=== PATIENT | female | born 1955 | race Caucasian/White ===

== ENCOUNTER 2020-06-08 07:43 | Outpatient (CLI) | payer MEDICARE, SELFPAY ==
--- NOTE | ~2020-06-08 | MM_ITS ---
EXAMINATION: MM screening [facility] BI w michelle HISTORY: Screening mammogram TECHNIQUE: Craniocaudal and mediolateral oblique 3-D tomosynthesis images were obtained and synthetic 2-D images were generated. CAD analysis was submitted and interpreted. COMPARISON: 03/16/2019, 09/02/2017, 08/25/2015 BREAST PARENCHYMAL COMPOSITION: There are scattered areas of fibroglandular density. FINDINGS: There is no evidence of suspicious mass, calcification, or architectural distortion to sugg est malignancy in either breast. There has been no suspicious interval change. IMPRESSION: 1. No mammographic evidence of malignancy. 2. Recommend routine screening mammography in one year. BI-RADS Category 1: Negative Reviewed, dictated and finalized at location A. NEL MANAGER
[2020-06-08] MEDS: ZOLEDRONIC ACID 5 MG/100 ML 100 ML 400 MG IVPB (08:25)
[2020-06-08 08:47] VITALS: BP 120/69; PULSE 80; RESP 16; TEMP 36.3; O2SAT 97
--- NOTE | 2020-06-08 08:49 | PC.NURSE ---
Patient here for yearly Reclast infusion. No concerns voiced. Reports did well with last year's dose. Reclast infusion administrated. Tolerated it well. Safe exit of hospital.
== END 2020-06-08 07:44 | disposition home or self-care (01) ==
PROVIDERS: PCP Internal Medicine; Visit Provider Internal Medicine
DX: M81.0 Age-related osteoporosis without current pathological fracture (principal); Z12.31 Encounter for screening mammogram for malignant neoplasm of breast
CPT/HCPCS: 77063; 77067; 96365; 96374; J3489

== ENCOUNTER 2020-08-14 13:44 | Outpatient (CLI) | payer MEDICARE, SELFPAY ==
[2020-08-15 18:38] LABS: SARS-CoV-2 RNA PCR Positive
== END 2020-08-14 13:45 | disposition home or self-care (01) ==
LOC: CHSLAB 13:46
PROVIDERS: PCP Internal Medicine; Visit Provider Internal Medicine
DX: U07.1 COVID-19 (principal)
CPT/HCPCS: 36415; 86769; C9803; U0003; U0005

== ENCOUNTER 2020-08-16 10:59 | Outpatient (CLI) | payer MEDICARE, SELFPAY ==
--- NOTE | ~2020-08-16 | XR_ITS ---
EXAMINATION: XR chest 2V DATE: 08/16/2020 11:34 INDICATION: COVID-19 pneumonia. TECHNIQUE: Frontal and lateral views of the chest were obtained. COMPARISON: Chest 2 views 02/08/2019 FINDINGS: There is mild atelectasis in left lower lung zone. Calcified bilateral pulmonary nodules an d calcified hilar and mediastinal lymph nodes are consistent with old granulomatous disease. No pleur al effusion or pneumothorax. The heart size is normal. IMPRESSION: 1. Mild atelectasis in left lower lung zone. Reviewed, dictated and finalized at location B. TECHNICIAN
[2020-08-16 11:37] LABS: Basophils Absolute Auto 0.01 K/mm3 (0.00-0.10); Basophils Percent Auto 0.1 % (0.0-1.0); Eosinophils Absolute Auto 0.07 K/mm3 (0.02-0.50); Hematocrit 40.8 % (35.0-42.0); Hemoglobin 13.1 g/dL (11.7-13.8); Immature Granulocyte Absolute 0.02 K/mm3 (0.00-0.00); Immature Granulocyte Percent A 0.3 % (0.0-0.0); Lymphocytes Absolute Auto 1.71 K/mm3 (1.10-4.50); Mean Corpuscular HGB Conc 32.1 g/dL (32.0-36.0); Mean Corpuscular Hemoglobin 30.4 pg (27.0-31.0); Mean Corpuscular Volume 94.7 fL (78.0-102.0); Mean Platelet Volume 9.2 fl (9.2-11.8); Monocytes Absolute Auto 0.41 K/mm3 (0.10-0.90); Monocytes Percent Auto 5.8 % (2.0-11.0); Neutrophils Absolute Auto 4.9 K/mm3 (1.7-7.2); Neutrophils Percent Auto 68.8 % (50.0-70.0); Platelet Count Result 370 K/mm3 (150-420); Red Blood Count 4.31 M/mm3 (4.20-5.40); Red Cell Distribution Width 12.4 % (11.6-14.4); White Blood Count 7.1 K/mm3 (4.8-10.8)
[2020-08-16 11:50] LABS: D Dimer 0.27 mg/L (0.19-0.50)
== END 2020-08-16 11:00 | disposition home or self-care (01) ==
LOC: CHSLAB 11:01
PROVIDERS: PCP Internal Medicine; Visit Provider Internal Medicine
DX: U07.1 COVID-19 (principal); R06.02 Shortness of breath
CPT/HCPCS: 36415; 71046; 85025; 85380

== ENCOUNTER 2020-11-06 10:19 | Emergency (ER) | payer MEDICARE, SELFPAY ==
--- NOTE | ~2020-11-06 | XR_ITS ---
EXAMINATION: XR chest 2V DATE: 11/06/2020 12:54 INDICATION: Anterior chest pain and shortness of breath TECHNIQUE: PA and lateral views of the chest are obtained. COMPARISON: 08/16/2020 FINDINGS: Airspace opacities are present in the right upper lobe. Scattered calcified pulmonary nodul es are consistent with old granulomatous disease. There is no pleural effusion or pneumothorax. The c ardiomediastinal silhouette is normal. There is mild thoracic spondylosis. IMPRESSION: 1. Right upper lobe pneumonia. Reviewed, dictated and finalized at location B.
--- NOTE | ~2020-11-06 | CT_ITS ---
EXAMINATION: CT abdomen pelvis wo con DATE: 11/06/2020 12:50 INDICATION: Epigastric pain, nausea, vomiting, diarrhea TECHNIQUE: Computed tomography (CT) of the abdomen and pelvis was performed without intravenous contr ast. The dose-length product (DLP) was 206.88 mGy-cm. Automated exposure control and iterative recons truction technique were employed. COMPARISON: None FINDINGS: Minimal dependent atelectasis is present in the lung bases. The heart size is normal. Calci fied nodules of the lung bases are consistent with old granulomatous disease. There is a trace perica rdial effusion. Punctate calcifications in otherwise normal appearing liver and spleen likely represe nt healed granulomatous disease. The pancreas, gallbladder, and adrenal glands are normal. The kidney s are unremarkable. No pathologically enlarged abdominal or pelvic lymph nodes are identified. There is no free intraperitoneal gas or evidence of bowel obstruction. Colonic diverticulosis is present wi thout evidence of diverticulitis. There is mild lumbar spondylosis. A small fat-containing umbilical hernia is noted. IMPRESSION: 1. No CT correlate for the patient's symptoms. Reviewed, dictated and finalized at location B.
[2020-11-06 11:49] VITALS: BP 105/53; PULSE 79; RESP 14; O2SAT 95
[2020-11-06 11:54] LABS: Add Urine Microscopic? YES; Appearance Urine Clear (Clear); Bilirubin Urine Negative (Negative); Blood Urine 1+ (Negative); Color Urine Yellow (Yellow); Glucose Urine UA Negative (Negative); Ketones Urine Trace (Negative); Leukocyte Esterase Ur Negative (Negative); Nitrate Urine Negative (Negative); Protein Urine 2+ (Negative); pH Urine 5.5 (5.0-8.0)
[2020-11-06 11:55] LABS: Hematocrit 40.5 % (35.0-42.0); Hemoglobin 13.2 g/dL (11.7-13.8); Mean Corpuscular HGB Conc 32.6 g/dL (32.0-36.0); Mean Corpuscular Hemoglobin 30.4 pg (27.0-31.0); Mean Corpuscular Volume 93.3 fL (78.0-102.0); Mean Platelet Volume 10.3 fl (9.2-11.8); Platelet Count Result 237 K/mm3 (150-420); Red Blood Count 4.34 M/mm3 (4.20-5.40); Red Cell Distribution Width 13.4 % (11.6-14.4); White Blood Count 7.9 K/mm3 (4.8-10.8)
[2020-11-06 12:00] LABS: Amorphous Sediment Urine Moderate; Bacteria Urine 1+ /hpf; Squamous Epithelial Cell Urine Moderate /hpf (Few)
[2020-11-06 12:01] LABS: Mucus Urine Moderate /lpf
[2020-11-06 12:11] LABS: Alanine Aminotransferase 20 U/L (14-59); Albumin Level 2.7 g/dL (3.4-5.0); Alkaline Phosphatase 90 U/L (46-116); Anion Gap 9 mmol/L (8-16); Aspartate Amino Transferase 15 U/L (15-37); Bilirubin,Total 0.5 mg/dL (0.00-1.00); Blood Urea Nitrogen 31 mg/dL (7-18); Carbon Dioxide 27 mmol/L (21-32); Chloride 99 mmol/L (98-108); Estimated Glomerular Filt Rate 35; Glucose 130 mg/dL (70-99); Lipase 35 U/L (73-393); Osmolality Calculated 288 mOsm/kg (285-295); Sodium 135 mmol/L (136-145); Total Protein 7.5 g/dL (6.4-8.2)
[2020-11-06] MEDS: KETOROLAC 30 MG/ML VIAL (*BKC) IV PUSH (12:12)
[2020-11-06] MEDS: ONDANSETRON INJ 4 MG/2 ML VIAL IV PUSH (12:12)
[2020-11-06 12:13] LABS: Lactic Acid Reflex 2.3 mmol/L (0.4-2.0)
[2020-11-06 12:17] LABS: Band Neutrophils Percent 17 % (0-6); Basophils Percent Manual 0 % (0-1); Eosinophils Percent Manual 0 % (1-6); Lymphocytes Percent Manual 14 % (18-44); Metamyelocytes Percent 1 %; Monocytes Absolute Manual 0.39 K/mm3 (0.1-0.90); Monocytes Percent Manual 5 % (3-9); Myelocytes Percent 2 %; Neutrophils Absolute Manual 6.16 K/mm3 (1.7-7.2); Neutrophils Percent Manual 61 % (46-73); Platelet Estimate Adequate (Adequate); Total Cells Counted 100
--- NOTE | 2020-11-06 12:43 | ED.ABDPAIN ---
HPI - Abdominal Pain General Chief Complaint: Abdominal Pain Stated Complaint: fever/ stomach pain/vomiting/ringing in ears/unste Time Seen by Provider: 11/06/20 11:55 Source: patient Mode of arrival: ambulatory Limitations: no limitations History of Present Illness HPI narrative: Patient complains of shortness of breath for the last several days, moderately severe, ongoing, and worse today. She had a fever of 101 on Friday. She has had minimal cough. She has also had epigastric pain she says, which has an aggravation the past few days. Shortness of breath is worse with any activity. Related Data Home Medications Medication Instructions Recorded Confirmed ergocalciferol (vitamin D2) 1,250 mcg PO WEEKLY 06/08/20 11/06/20 [Ergo-D] lovastatin 20 mg PO HS 06/08/20 11/06/20 valacyclovir 500 mg PO DAILY 06/08/20 11/06/20 venlafaxine 37.5 mg PO BID 06/08/20 11/06/20 fluticasone furoate-vilanterol 1 ea INHALATION DAILY 11/06/20 11/06/20 [Breo Ellipta] Allergies Allergy/AdvReac Type Severity Reaction Status Date / Time No Known Allergies Allergy Verified 06/08/20 07:59 Review of Systems Constitutional: Constitutional: Reports fatigue and Reports weakness Eyes: Eyes: Reports no additional eye complaints ENT: Reports system reviewed and no additional complaints, except as documented Cardiovascular: Cardiovascular: Reports no additional cardiovascular complaints Respiratory: Respiratory: Reports no additional respiratory complaints Gastrointestinal: Gastrointestinal: Reports heartburn Comments: Relatively severe discomfort in epigastric area. Genitourinary: Genitourinary: Reports no additional female genitourinary complaints Musculoskeletal: Musculoskeletal: Reports no additional musculoskeletal complaints Integumentary/Breasts: Skin/Breast: Reports system reviewed and no additional complaints, except as docu Neurologic: Reports system reviewed and no additional complaints, except as documented Psychiatric: Psychiatric: Reports no additional psychiatric complaints Endocrine: Endocrine: Reports no additional endocrine complaints Hematologic/Lymphatic: Hematologic/Lymphatic: Reports no additional hematologic/lymphatic complaints Allergic/Immunologic: Allergic/Immunologic: Reports no additional allergic/immunologic complaints PMFSH Past Medical History Medical History Asthma COPD (chronic obstructive pulmonary disease) Histoplasmosis Tuberculin skin test positive Family History Family History Father Family history of alcoholism Mother Family history of congestive heart failure Social History Social History Smoking status: Former smoker Exam Const: General: no acute distress and alert Orientation/consciousness: patient oriented x3 HENMT: Head: normal to inspection Ears: external ears normal General nose exam: Normal external nose present Mouth: Yes Normal oral and palatal mucosa present Throat: posterior oropharynx normal Eyes: Conjunctivae: conjunctivae normal Neck: Neck: normal visual inspection Chest: Chest palpation & inspection: normal inspection of the chest Resp: Effort & Inspection: normal respiratory effort Auscultation: clear to auscultation bilaterally Cardio: Rate: regular rate Rhythm: regular rhythm GI: GI Palp: Yes Soft to palpation (nontender) Skin: General skin exam: normal color Neuro: General: patient oriented x3 and moves all extremities Extrem: General: normal to inspection Psych: Appearance: grossly normal Mental Status: mental status grossly normal Thought content: Yes Normal thought content present Course Course Emergency Course: Labs were reviewed. CXR was reviewed by me, she appears to have a RML pneumonia. Ct of abdomen and pelvis was negative. I believe GERD i
[2020-11-06] MEDS: AZITHROMYCIN 250 MG TABLET 500 MG PO (13:53)
[2020-11-06] MEDS: SODIUM CHLORIDE 0.9% IV 1,000 ML 999 ML IV CONT (13:54)
[2020-11-06 14:42] VITALS: BP 126/65; PULSE 86; RESP 16; O2SAT 96
[2020-11-06 14:57] LABS: Reflex Lactic Acid Yes or No No Lactic Reflex
== END 2020-11-06 14:43 | disposition home or self-care (01) ==
PROVIDERS: Emergency Provider Emergency Medicine; PCP Internal Medicine
DX: J18.9 Pneumonia, unspecified organism (principal); K21.9 Gastro-esophageal reflux disease without esophagitis; J44.9 Chronic obstructive pulmonary disease, unspecified; Z87.891 Personal history of nicotine dependence
CPT/HCPCS: 36415; 71046; 74176; 80053; 81001; 83605; 83690; 85025; 96365; 96375; 99283; 99284; A9270; J0696; J1885; J2405; J7030

== ENCOUNTER 2020-11-10 11:16 | Outpatient (CLI) | payer MEDICARE, SELFPAY ==
--- NOTE | ~2020-11-10 | XR_ITS ---
EXAMINATION: XR chest 2V DATE: 11/10/2020 11:48 INDICATION: Pneumonia. Right chest pain. TECHNIQUE: Frontal and lateral views of the chest were obtained. COMPARISON: Chest 2 views 11/06/2020, 08/16/2020 FINDINGS: Scattered calcified pulmonary nodules are consistent with old granulomatous disease. There is mild atelectasis at the lung bases. There are airspace opacities in right upper lobe with mild rig ht upper lobe volume loss, consistent with pneumonia. No pleural effusion or pneumothorax. The heart size is normal. IMPRESSION: 1. Right upper lobe pneumonia with mild interval improvement. Given the mild right upper lobe volume loss, chest CT with contrast is recommended to exclude obstructing mass. Reviewed, dictated and finalized at location A. IMPRESSION: 1. Right upper lobe pneumonia with mild interval improvement. Given the mild ri ght upper lobe volume loss, chest CT with contrast is recommended to exclude ob structing mass.
--- NOTE | ~2020-11-10 | CT_ITS ---
EXAMINATION: CTA chest PE protocol EXAM DATE: 11/10/2020 13:08 INDICATION: positive d-dimer. Shortness of breath, right CP, elevated ddimer, recent pneumonia. TECHNIQUE: Spiral CTA of the chest (pulmonary arteries) was performed with 100 cc Omnipaque 350 intr avenous contrast injection. Images were acquired during the pulmonary arterial phase. Coronal maxi mum intensity projection 3D-reconstructions were created by the technologist on dedicated workstation . Axial, coronal and sagittal reformatted images were reviewed. The dose-length product (DLP) for t his examination was 209.59 mGy-cm. The exposure was tailored according to patient size (auto mA exp osure control), and iterative reconstruction (ASIR) was used as additional dose reduction technique. Correlation is made to chest x-ray earlier same date and 11/06/2020. FINDINGS: Pulmonary arteries are well opacified and without intraluminal filling defects. No thora cic aortic dissection. Subsegmental dense right upper lobe consolidation with some surrounding groun dglass density, appearance is most consistent with bacterial pneumonia. No evidence of any underlying cancer. There has been evidence of improvement in this opacity correlated to a chest x-ray from 11/06. Smaller amount of right lower lobe groundglass opacity probably same process. Linear left basilar atelectasis. Scattered calcified lung granulomas. Mild emphysema and hyperinflati on. Small right pleural effusion. Small pericardial effusion. Tracheobronchial tree is patent. The re is no mediastinal, hilar or axillary lymphadenopathy. There is no pneumothorax. Heart normal i n size. No evidence of coronary arterial calcification. Upper abdomen is unremarkable. There is mild thoracic spondylosis without osteoblastic or osteolytic lesions identified. IMPRESSION: 1. Segmental right upper lobe consolidation most likely pneumonia, mild interval improvement. 2. Mild emphysema and hyperinflation. 3. No pulmonary emboli. Reviewed, dictated and finalized at location A. IMPRESSION: 1. Segmental right upper lobe consolidation most likely pneumonia, mild interv al improvement. 2. Mild emphysema and hyperinflation. 3. No pulmonary emboli.
[2020-11-10 11:30] LABS: Hematocrit 35.7 % (35.0-42.0); Hemoglobin 11.6 g/dL (11.7-13.8); Mean Corpuscular HGB Conc 32.5 g/dL (32.0-36.0); Mean Corpuscular Hemoglobin 30.3 pg (27.0-31.0); Mean Corpuscular Volume 93.2 fL (78.0-102.0); Mean Platelet Volume 9.3 fl (9.2-11.8); Platelet Count Result 341 K/mm3 (150-420); Red Blood Count 3.83 M/mm3 (4.20-5.40); Red Cell Distribution Width 14.3 % (11.6-14.4); White Blood Count 7.3 K/mm3 (4.8-10.8)
[2020-11-10 11:44] LABS: Alanine Aminotransferase 46 U/L (14-59); Albumin Level 2.5 g/dL (3.4-5.0); Alkaline Phosphatase 106 U/L (46-116); Anion Gap 7 mmol/L (8-16); Aspartate Amino Transferase 22 U/L (15-37); Bilirubin,Total 0.2 mg/dL (0.00-1.00); Blood Urea Nitrogen 13 mg/dL (7-18); Calcium 8.7 mg/dL (8.5-10.1); Carbon Dioxide 29 mmol/L (21-32); Chloride 103 mmol/L (98-108); Estimated Glomerular Filt Rate 59; Glucose 97 mg/dL (70-99); Osmolality Calculated 288 mOsm/kg (285-295); Potassium 3.5 mmol/L (3.5-5.1); Sodium 139 mmol/L (136-145); Total Protein 6.8 g/dL (6.4-8.2)
[2020-11-10 11:52] LABS: BNP 164 pg/mL (0-100)
[2020-11-10 11:59] LABS: Band Neutrophils Percent 2 % (0-6); Basophils Percent Manual 0 % (0-1); Eosinophils Absolute Manual 0.07 K/mm3 (0.02-0.5); Eosinophils Percent Manual 1 % (1-6); Lymphocytes Percent Manual 22 % (18-44); Metamyelocytes Percent 2 %; Monocytes Absolute Manual 0.29 K/mm3 (0.1-0.90); Monocytes Percent Manual 4 % (3-9); Myelocytes Percent 2 %; Neutrophils Absolute Manual 5.03 K/mm3 (1.7-7.2); Neutrophils Percent Manual 67 % (46-73); Platelet Estimate Adequate (Adequate); Total Cells Counted 100
== END 2020-11-10 11:17 | disposition home or self-care (01) ==
PROVIDERS: PCP Internal Medicine; Visit Provider Internal Medicine
DX: R79.1 Abnormal coagulation profile (principal); R06.02 Shortness of breath; R06.00 Dyspnea, unspecified; J18.9 Pneumonia, unspecified organism
CPT/HCPCS: 36415; 71046; 71275; 80053; 83880; 85025; 85380; Q9967

== ENCOUNTER 2020-11-17 08:19 | Outpatient (CLI) | payer MEDICARE, SELFPAY ==
--- NOTE | ~2020-11-17 | XR_ITS ---
XR chest 2V DATE: 11/17/2020 08:51 INDICATION: Pneumonia. Covid. COPD. Asthma. TECHNIQUE: 2 views COMPARISON: 11/10/2020 CT pulmonary scan 11/10/2020 2 view chest FINDINGS: There is interval mild improvement of right upper lobe infiltrate, with persistent mild rig ht upper lobe atelectasis. Stable mild discoid atelectasis or scarring at the left lung base. Old pulmonary granulomatous disease. Normal heart size. No hilar or mediastinal enlargement is evident. IMPRESSION: Mild interval improvement of right upper lobe infiltrate since 11/10/2020 Reviewed, dictated and finalized at location A.
== END 2020-11-17 08:20 | disposition home or self-care (01) ==
LOC: CHSIMG 08:21
PROVIDERS: PCP Internal Medicine; Visit Provider Internal Medicine
DX: J18.9 Pneumonia, unspecified organism (principal)
CPT/HCPCS: 71046

== ENCOUNTER 2020-12-01 10:21 | Outpatient (CLI) | payer MEDICARE, SELFPAY ==
--- NOTE | ~2020-12-01 | XR_ITS ---
EXAMINATION: XR chest 2V DATE: 12/01/2020 10:43 INDICATION: Post-COVID pneumonia with ongoing cough TECHNIQUE: PA and lateral views of the chest were obtained. COMPARISON: Chest radiograph dated 11/17/2020 and 11/10/2020 FINDINGS: Continued improvement in a focal airspace opacity in the right upper lobe with suggestion of some ass ociated volume loss with mild elevation of the right hemidiaphragm. Additional mild opacities at the anterior left lung base. Multiple scattered bilateral small calcified pulmonary nodules along with ca lcified hilar and the sentinel lymph nodes consistent with old granulomatous disease. No pulmonary ed radha, pleural effusion or pneumothorax. The cardiomediastinal silhouette is normal. Mild thoracic levo curvature with moderate spondylosis. IMPRESSION: 1. Airspace opacities, unchanged at the anterior left lung base and with continued improvement in the right upper lung zone. Differential would include atelectasis and/or pneumonia. Reviewed, dictated and finalized at location A. IMPRESSION: 1. Airspace opacities, unchanged at the anterior left lung base and with contin ued improvement in the right upper lung zone. Differential would include atelec tasis and/or pneumonia.
== END 2020-12-01 10:22 | disposition home or self-care (01) ==
LOC: CHSLAB 10:23
PROVIDERS: PCP Internal Medicine; Visit Provider Internal Medicine
DX: J18.9 Pneumonia, unspecified organism (principal); Z51.89 Encounter for other specified aftercare
CPT/HCPCS: 71046

== ENCOUNTER 2020-12-04 13:10 | Outpatient (CLI) | payer MEDICARE, SELFPAY ==
--- NOTE | ~2020-12-04 | CT_ITS ---
EXAMINATION:CT diagnostic chest wo con DATE: 12/04/2020 13:34 INDICATION: Shortness of breath and cough. Pneumonia. TECHNIQUE: Computed tomography (CT) of the chest was performed without intravenous contrast. Automate d exposure control and iterative reconstruction technique were employed. The dose-length product (DLP ) was 119.56 mGy-cm. COMPARISON: Chest CT 11/10/2020, chest 2 views 12/01/2020, 11/17/2020, 11/10/2020, 11/06/2020 FINDINGS: Scattered calcified pulmonary nodules and calcified hilar and mediastinal lymph nodes are c onsistent with old granulomatous disease. In the right upper lobe, there are airspace opacities with volume loss and varicose bronchiectasis. There is mild bronchiectasis in left lower lobe and lingula. There is mild scarring at the lung apices. No pleural effusion. The heart size is normal. No pericar dial effusion. Calcifications in the liver and spleen are consistent with old granulomatous disease. There is severe thoracic spondylosis. IMPRESSION: 1. Right lung upper lobe airspace opacities with volume loss and varicose bronchiectasis with interva l improvement, consistent with pneumonia and scarring. Reviewed, dictated and finalized at location B. IMPRESSION: 1. Right lung upper lobe airspace opacities with volume loss and varicose bronc hiectasis with interval improvement, consistent with pneumonia and scarring.
== END 2020-12-04 13:11 | disposition home or self-care (01) ==
LOC: CHSIMG 13:11
PROVIDERS: PCP Internal Medicine; Visit Provider Internal Medicine
DX: J18.9 Pneumonia, unspecified organism (principal)
CPT/HCPCS: 71250

== ENCOUNTER 2021-07-13 14:15 | Outpatient (CLI) | payer MEDICARE, SELFPAY ==
--- NOTE | ~2021-07-13 | DEXA_ITS ---
Bone Density Report Name: SOLE MONTALVO Age: 66 Sex: Female Ethnicity: White Date of : 1955 Indication: postmenopausal; screening for osteoporosis; height loss; prior fracture; asthma or emphysema; Referring Provider: Starr Jacinto Study: Bone densitometry was performed. Exam Date: July 13, 2021 Accession number: [id number] Bone Density: Region BMD T-score Z-score Classification AP Spine(L1-L4) 1.089 0.4 2.4 Normal Femoral Neck (Left) 0.700 -1.3 0.3 Osteopenia Total Hip (Left) 0.862 -0.7 0.7 Normal Femoral Neck (Right) 0.683 -1.5 0.2 Osteopenia Total Hip (Right) 0.859 -0.7 0.7 Normal Femoral Neck Mean 0.691 -1.4 0.3 Osteopenia Total Hip Mean 0.861 -0.7 0.7 Normal World Health Organization criteria for BMD impression classify patients as: Normal (T-score at or above -1.0), Osteopenia (T-score between -1.0 and -2.5), or Osteoporosis (T-score at or below -2.5). 10-year Fracture Risk: FRAX not reported because: Treated for osteoporosis Clinical Information Provided by Patient: Has had a low trauma fracture Has 3 or more alcoholic drinks per day Is being treated for osteoporosis Has used the following medications: Vitamin D, Calcium, infusion for osteoporis Has the following medical conditions: Asthma or Emphysema Patient maximum height was 61 Menopause Age: 48 Drinks caffeinated beverages Onset of menses at age 10 Number of children 2 Impression: The patient has low bone mass, based on the Right Femoral Neck T-score. The patient has risk factors, including: excessive alcohol use, previous fracture. Discussion: It is important to ask patients whether they are taking their medications and to encourage continued and appropriate compliance with their osteoporosis therapies to reduce fracture risk. It is also important to review their risk factors and encourage appropriate calcium and vitamin D intakes, exercise, fall prevention and other lifestyle measures. Follow-Up: Consider a repeat BMD and Vertebral Fracture Assessment (VFA) exam in 2 years or sooner if medically necessary, to reassess this patient's status. Reported by: Dr. Zachery Montero on 07/13/2021 2:57:00 PM. Reviewed, dictated and finalized at location ACherise COLES
--- NOTE | ~2021-07-13 | MM_ITS ---
EXAMINATION: MM screening [facility] BI w michelle HISTORY: Screening TECHNIQUE: Craniocaudal and mediolateral oblique 3-D tomosynthesis images were obtained and synthetic 2-D images were generated. CAD analysis was submitted and interpreted. COMPARISON: Comparison to multiple prior studies sequentially, with oldest reviewed study dated 03/2013. BREAST PARENCHYMAL COMPOSITION: Breast composed of scattered areas of fibroglandular density. FINDINGS: There is no evidence of suspicious mass, calcification, or architectural distortion to sugg est malignancy in either breast. There has been no suspicious interval change. IMPRESSION: 1. No mammographic evidence of malignancy. 2. Recommend routine screening mammography in one year. BI-RADS Category 1: Negative Reviewed, dictated and finalized at location A. RATION PLANT OPERATOR
== END 2021-07-13 14:16 | disposition home or self-care (01) ==
LOC: CHSIMG 14:17
PROVIDERS: PCP Internal Medicine; Visit Provider Internal Medicine
DX: M81.0 Age-related osteoporosis without current pathological fracture (principal); Z12.31 Encounter for screening mammogram for malignant neoplasm of breast
CPT/HCPCS: 77063; 77067; 77080

== ENCOUNTER 2021-08-03 17:15 | Outpatient (CLI) | payer MEDICARE, SELFPAY ==
[2021-08-03 19:32] LABS: SARS-CoV-2 Ag Negative (Negative)
[2021-08-03 19:32] LABS: Influenza Control Valid (Valid)
== END 2021-08-03 17:16 | disposition home or self-care (01) ==
LOC: CHSLAB 17:18
PROVIDERS: PCP Internal Medicine; Visit Provider Internal Medicine
DX: J06.9 Acute upper respiratory infection, unspecified (principal); Z20.822 Contact with and (suspected) exposure to COVID-19
CPT/HCPCS: 87081; 87426; 87804; 87880; C9803

== ENCOUNTER 2021-10-01 12:09 | Outpatient (CLI) | payer MEDICARE, SELFPAY ==
--- NOTE | ~2021-10-01 | XR_ITS ---
EXAMINATION: XR chest 2V EXAM DATE: 10/01/2021 13:54 INDICATION: Asthma Exacerbation, pneumonia, COPD, cough x8days. TECHNIQUE: Frontal and lateral projections of the chest obtained and reviewed. Comparison is made to prior examination from 12/11/2020. FINDINGS: Left basilar linear opacity, at least partly atelectasis. Superimposed pneumonia not exclu dable. There are scattered lung granulomata bilaterally unchanged. Resolution of previously seen righ t upper lobe pneumonia. No pneumothorax or pleural effusion. Cardiomediastinal silhouette is normal. Degenerative IMPRESSION: 1. Development of scattered left basilar atelectasis. Superimposed pneumonia not excludable. 2. Lung granulomas. Reviewed, dictated and finalized at location A. T TEAM CLERK IMPRESSION: 1. Development of scattered left basilar atelectasis. Superimposed pneumonia n ot excludable. 2. Lung granulomas.
[2021-10-01 12:29] LABS: Basophils Absolute Auto 0.02 K/mm3 (0.00-0.10); Basophils Percent Auto 0.4 % (0.0-1.0); Eosinophils Absolute Auto 0.04 K/mm3 (0.02-0.50); Eosinophils Percent Auto 0.7 % (1.0-6.0); Hematocrit 41.5 % (35.0-42.0); Hemoglobin 13.2 g/dL (11.7-13.8); Immature Granulocyte Absolute 0.02 K/mm3 (0.00-0.00); Immature Granulocyte Percent A 0.4 % (0.0-0.0); Lymphocytes Absolute Auto 1.25 K/mm3 (1.10-4.50); Lymphocytes Percent Auto 22.4 % (18.0-42.0); Mean Corpuscular HGB Conc 31.8 g/dL (32.0-36.0); Mean Corpuscular Hemoglobin 30.5 pg (27.0-31.0); Mean Corpuscular Volume 95.8 fL (78.0-102.0); Mean Platelet Volume 9.8 fl (9.2-11.8); Monocytes Absolute Auto 0.43 K/mm3 (0.10-0.90); Monocytes Percent Auto 7.7 % (2.0-11.0); Neutrophils Absolute Auto 3.8 K/mm3 (1.7-7.2); Neutrophils Percent Auto 68.4 % (50.0-70.0); Platelet Count Result 284 K/mm3 (150-420); Red Blood Count 4.33 M/mm3 (4.20-5.40); Red Cell Distribution Width 13.2 % (11.6-14.4); White Blood Count 5.6 K/mm3 (4.8-10.8)
[2021-10-01 12:40] LABS: Influenza Control Valid (Valid)
[2021-10-01 12:47] LABS: Alanine Aminotransferase 26 U/L (14-59); Albumin Level 3.1 g/dL (3.4-5.0); Alkaline Phosphatase 81 U/L (46-116); Anion Gap 10 mmol/L (8-16); Aspartate Amino Transferase 20 U/L (15-37); Bilirubin,Total 0.4 mg/dL (0.00-1.00); Blood Urea Nitrogen 16 mg/dL (7-18); Calcium 8.7 mg/dL (8.5-10.1); Carbon Dioxide 29 mmol/L (21-32); Chloride 103 mmol/L (98-108); Estimated Glomerular Filt Rate 53; Glucose 72 mg/dL (70-99); Osmolality Calculated 294 mOsm/kg (285-295); Potassium 4.3 mmol/L (3.5-5.1); Sodium 142 mmol/L (136-145); Total Protein 7.2 g/dL (6.4-8.2)
== END 2021-10-01 12:10 | disposition home or self-care (01) ==
PROVIDERS: PCP Internal Medicine; Visit Provider Internal Medicine
DX: J45.901 Unspecified asthma with (acute) exacerbation (principal)
CPT/HCPCS: 71046; 80053; 85025; 87804

== ENCOUNTER 2021-10-08 08:54 | Outpatient (CLI) | payer MEDICARE, SELFPAY ==
--- NOTE | ~2021-10-08 | XR_ITS ---
EXAMINATION: XR chest 2V DATE: 10/08/2021 09:10 INDICATION: Left lower lobe pneumonia with cough and shortness of breath TECHNIQUE: PA and lateral views of the chest were obtained. COMPARISON: Chest radiograph dated 10/01/2021 FINDINGS: Improvement in opacities at the left lung base which could represent atelectasis and/or pneumonia. Pe rsistent more linear and bandlike opacities at the right lower lung zone and favor atelectasis over p neumonia. Numerous bilateral small calcified pulmonary nodules and calcified bilateral hilar and medi astinal lymph nodes consistent with old granulomatous disease. The cardiomediastinal silhouette is no rmal. Mild to moderate degenerative skeletal changes in the thoracic and lumbar spine and at both gle nohumeral joints. IMPRESSION: 1. Decreasing opacities at the left lower lung zone which could represent improving atelectasis and/o r pneumonia. 2. Unchanged linear and bandlike opacities more likely to represent atelectasis at the right lung bas e. Reviewed, dictated and finalized at location A. IMPRESSION: 1. Decreasing opacities at the left lower lung zone which could represent impro ving atelectasis and/or pneumonia. 2. Unchanged linear and bandlike opacities more likely to represent atelectasis at the right lung base.
== END 2021-10-08 08:55 | disposition home or self-care (01) ==
LOC: CHSIMG 08:57
PROVIDERS: PCP Internal Medicine; Visit Provider Internal Medicine
DX: Z09 Encounter for follow-up examination after completed treatment for conditions other than malignant neoplasm (principal); J18.9 Pneumonia, unspecified organism
CPT/HCPCS: 71046

== ENCOUNTER 2021-11-13 08:41 | Outpatient (CLI) | payer MEDICARE, SELFPAY ==
--- NOTE | ~2021-11-13 | XR_ITS ---
EXAMINATION: XR chest 2V DATE: 11/13/2021 09:17 INDICATION: Pneumonia follow-up. TECHNIQUE: Frontal and lateral views of the chest were obtained. COMPARISON: Chest 2 views 10/08/2021 FINDINGS: Calcified pulmonary nodules and calcified hilar and mediastinal lymph nodes are consistent with old granulomatous disease. There is mild atelectasis in left lower lung zone with interval impro vement. No pleural effusion or pneumothorax. The heart size is normal. IMPRESSION: 1. Mild atelectasis in left lower lung zone. Reviewed, dictated and finalized at location B.
[2021-11-13 09:07] LABS: Add Urine Microscopic? NO; Appearance Urine Clear (Clear); Bilirubin Urine Negative (Negative); Blood Urine Negative (Negative); Color Urine Light Yellow (Yellow); Glucose Urine UA Negative (Negative); Ketones Urine Negative (Negative); Leukocyte Esterase Ur Negative (Negative); Nitrate Urine Negative (Negative); Protein Urine Negative (Negative); Specific Grav Ur <= 1.005 (1.010-1.020); Urobilinogen Urine 0.2 mg/dL (0.2-1.0); pH Urine 6.5 (5.0-8.0)
[2021-11-13 09:43] LABS: Alanine Aminotransferase 19 U/L (14-59); Albumin Level 4.1 g/dL (3.4-5.0); Alkaline Phosphatase 54 U/L (46-116); Anion Gap 6 mmol/L (8-16); Aspartate Amino Transferase 17 U/L (15-37); Bilirubin,Total 0.5 mg/dL (0.00-1.00); Blood Urea Nitrogen 14 mg/dL (7-18); Calcium 9.1 mg/dL (8.5-10.1); Carbon Dioxide 30 mmol/L (21-32); Chloride 104 mmol/L (98-108); Cholesterol 282 mg/dL (0-200); Creatine Kinase 106 U/L (26-192); Estimated Glomerular Filt Rate > 60; Glucose 91 mg/dL (70-99); HDL Direct 92 mg/dL (40-60); LDL Cholesterol Calculated 172 mg/dL (<130); Osmolality Calculated 290 mOsm/kg (285-295); Potassium 4.7 mmol/L (3.5-5.1); Sodium 140 mmol/L (136-145); Total Protein 7.1 g/dL (6.4-8.2); Triglycerides 89 mg/dL (0-150)
[2021-11-15 15:01] LABS: Vitamin D 25 Hydroxy 62 ng/mL (30-100)
== END 2021-11-13 08:42 | disposition home or self-care (01) ==
LOC: CHSLAB 08:44
PROVIDERS: PCP Internal Medicine; Visit Provider Internal Medicine
DX: E78.2 Mixed hyperlipidemia (principal); M81.0 Age-related osteoporosis without current pathological fracture; J18.9 Pneumonia, unspecified organism; Z09 Encounter for follow-up examination after completed treatment for conditions other than malignant neoplasm
CPT/HCPCS: 36415; 71046; 80053; 80061; 81003; 82306; 82550

== ENCOUNTER 2021-12-25 10:36 | Outpatient (CLI) | payer MEDICARE, SELFPAY ==
--- NOTE | ~2021-12-25 | XR_ITS ---
XR chest 2V 12/25/2021 10:57 Indication: Pneumonia. History of asthma. COPD. Procedure: 2 view chest Comparison: Comparison to multiple prior studies sequentially, with oldest reviewed study dated 01/2021. Findings: There is chronic left basilar atelectasis/scarring. There are multiple bilateral calcified pulmonary nodules unchanged. Heart size normal. No focal air space disease, pulmonary edema, pleural effusion or suspected pneumothorax. Impression: 1: No acute cardiopulmonary disease. Reviewed, dictated and finalized at location A. Impression: 1: No acute cardiopulmonary disease.
[2021-12-25] MEDS: ZOLEDRONIC ACID 5 MG/100 ML 100 ML 400 MG IVPB (11:00)
[2021-12-25 11:04] VITALS: BMI 24.9
[2021-12-25 11:06] VITALS: BP 128/71; PULSE 72; RESP 14; TEMP 36.6; O2SAT 97
--- NOTE | 2021-12-25 11:07 | PC.NURSE ---
Patient here for yearly IV Reclast. Reports has it the last 2 years. No concerns voiced. Education given. IV Reclast administered see SEP. Tolerated well safe exit of hospital.
== END 2021-12-25 10:37 | disposition home or self-care (01) ==
LOC: CHSIMG 10:41
PROVIDERS: PCP Internal Medicine; Visit Provider Internal Medicine
DX: J18.9 Pneumonia, unspecified organism (principal); M81.0 Age-related osteoporosis without current pathological fracture
CPT/HCPCS: 71046; 96374; J3489

== ENCOUNTER 2022-12-30 09:11 | Outpatient (CLI) | payer MEDICARE, SELFPAY ==
[2022-12-30 09:16] VITALS: BMI 24.9
[2022-12-30] MEDS: ZOLEDRONIC ACID 5 MG/100 ML 100 ML 400 MG IVPB (09:20)
[2022-12-30 09:24] VITALS: BP 141/58; PULSE 72; RESP 14; TEMP 36.4; O2SAT 98
--- NOTE | 2022-12-30 09:34 | PC.NURSE ---
Patient here for yearly IV Reclast. Education given. No concerns voiced. Reports hasn't had trouble with this. Has been getting it for years. IV Reclast administered. See MAR. Tolerated well. Safe exit of hospital. Will return next year when notified.
== END 2022-12-30 09:12 | disposition home or self-care (01) ==
LOC: CHSTREATRM 09:13
PROVIDERS: PCP Internal Medicine; Visit Provider Internal Medicine
DX: M81.0 Age-related osteoporosis without current pathological fracture (principal)
CPT/HCPCS: 96374; J3489

== ENCOUNTER 2023-07-22 12:44 | Outpatient (CLI) | payer MEDICARE, SELFPAY ==
--- NOTE | ~2023-07-22 | MM_ITS ---
EXAMINATION: MM screening [facility] BI w michelle HISTORY: Screening mammogram TECHNIQUE: Craniocaudal and mediolateral oblique 3-D tomosynthesis images were obtained and synthetic 2-D images were generated. CAD analysis was submitted and interpreted. COMPARISON: 07/13/2021, 06/08/2020, 03/16/2019 bilateral screening mammogram examinations BREAST PARENCHYMAL COMPOSITION: There are scattered areas of fibroglandular density. FINDINGS: There is no evidence of suspicious mass, calcification, or architectural distortion to sugg est malignancy in either breast. There has been no suspicious interval change. IMPRESSION: 1. No mammographic evidence of malignancy. 2. Recommend routine screening mammography in one year. BI-RADS Category 1: Negative Reviewed, dictated and finalized at location A. STRIAL ENGINEERING ANALYST
--- NOTE | ~2023-07-22 | DEXA_ITS ---
Bone Density Report Name: SOLE MONTALVO Age: 68 Sex: Female Ethnicity: White Date of : 1955 Indication: postmenopausal; screening for osteoporosis; height loss; prior fracture; asthma or emphysema; Referring Provider: Starr Jacinto Study: Bone densitometry was performed. Exam Date: July 22, 2023 Accession number: [id number] Bone Density: Region BMD T-score Z-score Classification AP Spine(L2, L3, L4) 1.137 0.5 2.7 Normal Femoral Neck (Left) 0.659 -1.7 0.1 Osteopenia Total Hip (Left) 0.866 -0.6 0.9 Normal Femoral Neck (Right) 0.668 -1.6 0.2 Osteopenia Total Hip (Right) 0.865 -0.6 0.9 Normal Femoral Neck Mean 0.664 -1.7 0.1 Osteopenia Total Hip Mean 0.866 -0.6 0.9 Normal World Health Organization criteria for BMD impression classify patients as: Normal (T-score at or above -1.0), Osteopenia (T-score between -1.0 and -2.5), or Osteoporosis (T-score at or below -2.5). 10-year Fracture Risk: FRAX not reported because: Treated for osteoporosis Clinical Information Provided by Patient: Has had a low trauma fracture Has 3 or more alcoholic drinks per day Is being treated for osteoporosis Has used the following medications: Vitamin D, Calcium, infusion for osteoporis Has the following medical conditions: Asthma or Emphysema Patient maximum height was 61 Menopause Age: 48 Drinks caffeinated beverages Onset of menses at age 10 Number of children 2 Impression: The patient has low bone mass, based on the Left Femoral Neck T-score. The patient has risk factors, including: excessive alcohol use, previous fracture. Discussion: It is important to ask patients whether they are taking their medications and to encourage continued and appropriate compliance with their osteoporosis therapies to reduce fracture risk. It is also important to review their risk factors and encourage appropriate calcium and vitamin D intakes, exercise, fall prevention and other lifestyle measures. Follow-Up: Consider a repeat BMD and Vertebral Fracture Assessment (VFA) exam in 2 years or sooner if medically necessary, to reassess this patient's status. Reported by: Dr. Vladimir Silvestre on 07/22/2023 1:17:00 PM. Reviewed, dictated and finalized at location A.
== END 2023-07-22 12:45 | disposition home or self-care (01) ==
LOC: CHSIMG 12:46
PROVIDERS: PCP Internal Medicine; Visit Provider Internal Medicine
DX: Z12.31 Encounter for screening mammogram for malignant neoplasm of breast (principal); Z78.0 Asymptomatic menopausal state; M85.89 Other specified disorders of bone density and structure, multiple sites
CPT/HCPCS: 77063; 77067; 77080

== ENCOUNTER 2023-08-04 10:18 | Outpatient (CLI) | payer MEDICARE, SELFPAY ==
--- NOTE | ~2023-08-04 | XR_ITS ---
XR chest 2V DATE: 08/04/2023 10:41 INDICATION: Cough for one week. Acute asthma. TECHNIQUE: 2 views COMPARISON: 12/25/2021 2 view chest FINDINGS: Normal heart size. No hilar or mediastinal enlargement. There is minimal basilar atelectasi s. No pulmonary infiltrate or consolidation, pleural effusion or pulmonary vascular congestion or pne umothorax is detected otherwise. Numerous bilateral calcified pulmonary granulomas consistent with old granulomatous disease. Mild levoscoliosis and degenerative spurring of the thoracic spine. IMPRESSION: Minimal basilar atelectasis; otherwise no active cardiopulmonary disease Old pulmonary granulomatous disease Reviewed, dictated and finalized at location B. SCOPY TECHNICIAN IMPRESSION: Minimal basilar atelectasis; otherwise no active cardiopulmonary di sease Old pulmonary granulomatous disease
[2023-08-04 10:30] LABS: Basophils Absolute Auto 0.01 K/mm3 (0.00-0.10); Basophils Percent Auto 0.2 % (0.0-1.0); Eosinophils Absolute Auto 0.01 K/mm3 (0.02-0.50); Eosinophils Percent Auto 0.2 % (1.0-6.0); Hematocrit 42.6 % (35.0-42.0); Hemoglobin 13.6 g/dL (11.7-13.8); Immature Granulocyte Absolute 0.01 K/mm3 (0.00-0.00); Immature Granulocyte Percent A 0.2 % (0.0-0.0); Lymphocytes Absolute Auto 2.35 K/mm3 (1.10-4.50); Lymphocytes Percent Auto 49.8 % (18.0-42.0); Mean Corpuscular HGB Conc 31.9 g/dL (32.0-36.0); Mean Corpuscular Hemoglobin 31.6 pg (27.0-31.0); Mean Corpuscular Volume 98.8 fL (78.0-102.0); Mean Platelet Volume 9.8 fl (9.2-11.8); Monocytes Absolute Auto 0.39 K/mm3 (0.10-0.90); Monocytes Percent Auto 8.3 % (2.0-11.0); Neutrophils Percent Auto 41.3 % (50.0-70.0); Platelet Count Result 216 K/mm3 (150-420); Red Blood Count 4.31 M/mm3 (4.20-5.40); Red Cell Distribution Width 12.7 % (11.6-14.4); White Blood Count 4.7 K/mm3 (4.8-10.8)
[2023-08-04 10:54] LABS: Alanine Aminotransferase 24 U/L (14-59); Albumin Level 3.9 g/dL (3.4-5.0); Alkaline Phosphatase 63 U/L (46-116); Anion Gap 11 mmol/L (8-16); Aspartate Amino Transferase 21 U/L (15-37); Bilirubin,Total 0.4 mg/dL (0.00-1.00); Blood Urea Nitrogen 11 mg/dL (7-18); Calcium 8.7 mg/dL (8.5-10.1); Carbon Dioxide 27 mmol/L (21-32); Chloride 100 mmol/L (98-108); Estimated Glomerular Filt Rate > 60; Glucose 103 mg/dL (70-99); Osmolality Calculated 285 mOsm/kg (285-295); Potassium 4.1 mmol/L (3.5-5.1); Sodium 138 mmol/L (136-145); Total Protein 7.9 g/dL (6.4-8.2)
== END 2023-08-04 10:19 | disposition home or self-care (01) ==
LOC: CHSLAB 10:20
PROVIDERS: PCP Internal Medicine; Visit Provider Internal Medicine
DX: J45.998 Other asthma (principal); J98.11 Atelectasis; R91.8 Other nonspecific abnormal finding of lung field
CPT/HCPCS: 36415; 71046; 80053; 85025

== ENCOUNTER 2024-01-06 11:18 | Outpatient (CLI) | payer MEDICARE, SELFPAY ==
[2024-01-06] MEDS: ZOLEDRONIC ACID 5 MG/100 ML 100 ML 400 MG IVPB (11:30)
[2024-01-06 11:41] VITALS: BP 151/72; PULSE 72; RESP 14; TEMP 36.4; O2SAT 98; BMI 24.0
[2024-01-06 11:47] VITALS: BP 146/72; PULSE 78; RESP 14; O2SAT 99
--- NOTE | 2024-01-06 12:17 | PC.NURSE ---
Patient here for early IV Reclast infusion. Education given. No concerns voiced. Infusion administered. SEE MAR. Tolerated well. Safe exit of hospital per self/ambulatory.
--- NOTE | 2024-01-06 14:28 | PC.NURSE ---
01/06/24 1120 Labs reviewed- Calcium 8.8. Creatinine 0.75 EGFR 86.
== END 2024-01-06 11:19 | disposition home or self-care (01) ==
PROVIDERS: PCP Internal Medicine; Visit Provider Internal Medicine
DX: M81.0 Age-related osteoporosis without current pathological fracture (principal)
CPT/HCPCS: 96374; J3489

== ENCOUNTER 2024-05-25 08:38 | Outpatient (CLI) | payer MEDICARE, SELFPAY ==
--- NOTE | ~2024-05-25 | CT_ITS ---
EXAMINATION: CT abdomen pelvis w con DATE: 05/25/2024 10:04 INDICATION: Right lower quadrant abdominal pain. Pelvic pain. TECHNIQUE: Computed tomography (CT) of the abdomen and pelvis was performed with 100 mL Omnipaque 350 intravenous contrast. Automated exposure control and iterative reconstruction technique were employe d. The dose-length product was 213.00 mGy-cm. COMPARISON: CT abdomen and pelvis 11/06/2020 FINDINGS: The visualized portions of the lung bases demonstrate calcified pulmonary nodules, consiste nt with old granulomatous disease. No pleural effusion. The heart size is normal. No pericardial effu krishan. The liver is normal. Calcifications in the spleen are consistent with old granulomatous disease . The gallbladder, pancreas, adrenal glands, and kidneys are normal. There is a right inguinal hernia containing fat. There is an umbilical hernia containing fat. There is diverticulosis of the colon wi thout evidence of diverticulitis. There are no dilated loops of bowel. The appendix is normal. There are no pathologically enlarged lymph nodes. There is no free intraperitoneal fluid. There is severe t horacic and lumbar spondylosis. IMPRESSION: 1. Right inguinal hernia containing fat. 2. Umbilical hernia containing fat. Reviewed, dictated and finalized at location B.
[2024-05-25 08:55] LABS: Basophils Absolute Auto 0.02 K/mm3 (0.00-0.10); Basophils Percent Auto 0.5 % (0.0-1.0); Eosinophils Absolute Auto 0.06 K/mm3 (0.02-0.50); Eosinophils Percent Auto 1.5 % (1.0-6.0); Hematocrit 43.7 % (35.0-42.0); Hemoglobin 14.2 g/dL (11.7-13.8); Immature Granulocyte Absolute 0.01 K/mm3 (0.00-0.00); Immature Granulocyte Percent A 0.3 % (0.0-0.0); Lymphocytes Absolute Auto 1.65 K/mm3 (1.10-4.50); Lymphocytes Percent Auto 41.6 % (18.0-42.0); Mean Corpuscular HGB Conc 32.5 g/dL (32-36); Mean Corpuscular Hemoglobin 31.9 pg (27.0-31.0); Mean Corpuscular Volume 98.2 fL (78.0-102.0); Monocytes Absolute Auto 0.42 K/mm3 (0.10-0.90); Monocytes Percent Auto 10.6 % (2.0-11.0); Neutrophils Absolute Auto 1.81 K/mm3 (1.70-7.20); Neutrophils Percent Auto 45.5 % (50.0-70.0); Platelet Count Result 290 K/mm3 (150-420); Red Blood Count 4.45 M/mm3 (4.20-5.40); Red Cell Distribution Width 12.7 % (11.6-14.4)
[2024-05-25 09:00] LABS: Add Urine Microscopic? YES; Appearance Urine Clear (Clear); Bilirubin Urine Negative (Negative); Blood Urine Negative (Negative); Color Urine Light Yellow (Yellow); Glucose Urine UA Negative (Negative); Ketones Urine Negative (Negative); Leukocyte Esterase Ur Trace (Negative); Nitrate Urine Negative (Negative); Protein Urine Negative (Negative); Specific Grav Ur <= 1.005 (1.010-1.020); Urobilinogen Urine 0.2 mg/dL (0.2-1.0)
[2024-05-25 09:13] LABS: Alanine Aminotransferase 15 U/L (14-59); Alkaline Phosphatase 51 U/L (46-116); Amylase 51 U/L (25-115); Anion Gap 10 mmol/L (4-12); Aspartate Amino Transferase 20 U/L (15-37); Bilirubin,Total 0.6 mg/dL (0.00-1.00); Blood Urea Nitrogen 14 mg/dL (7-18); Calcium 9.1 mg/dL (8.5-10.1); Carbon Dioxide 27 mmol/L (21-32); Chloride 104 mmol/L (98-108); Estimated Glomerular Filt Rate > 60; Glucose 89 mg/dL (70-99); Lipase 54 U/L (16-77); Osmolality Calculated 291 mOsm/kg (285-295); Potassium 4.7 mmol/L (3.5-5.1); Sodium 141 mmol/L (136-145); Total Protein 7.4 g/dL (6.4-8.2)
[2024-05-25 09:14] LABS: Bacteria Urine Trace /hpf; RBC Urine None seen /hpf (0-2); Squamous Epithelial Cell Urine Few /hpf (Few); WBC Urine 0-3 /hpf (0-3)
== END 2024-05-25 08:39 | disposition home or self-care (01) ==
LOC: CHSIMG 08:40
PROVIDERS: PCP Internal Medicine; Visit Provider Nurse Practitioner Family
DX: R10.31 Right lower quadrant pain (principal); R10.2 Pelvic and perineal pain; K40.90 Unilateral inguinal hernia, without obstruction or gangrene, not specified as recurrent; K42.9 Umbilical hernia without obstruction or gangrene
CPT/HCPCS: 36415; 74177; 80053; 81001; 82150; 83690; 85025; 87086; Q9967

== ENCOUNTER 2024-06-18 10:06 | Outpatient (CLI) | payer MEDICARE, SELFPAY ==
--- NOTE | 2024-06-18 10:10 | ECG_ITS ---
Test Date: 2024-06-18 10:19:40 Measurements Intervals [place] Rate: 65 P: 61 AR: 145 QRS: 67 QRSD: 81 T: 66 QT: 403 QTc: 420 Interpretive Statements SINUS RHYTHM DELAYED PRECORDIAL R/S TRANSITION BORDERLINE T WAVE ABNORMALITY- ANTERIOR LEADS BORDERLINE ECG No previous ECG available for comparison Electronically Signed On 06-18-2024 10:17:54 FITTING ROOM ATTENDANT by Adrien Beebe D.O.
== END 2024-06-18 10:07 | disposition home or self-care (01) ==
LOC: CHSCARD 10:07
PROVIDERS: PCP Internal Medicine; Visit Provider Anesthesiology
DX: K40.90 Unilateral inguinal hernia, without obstruction or gangrene, not specified as recurrent (principal); K42.9 Umbilical hernia without obstruction or gangrene
CPT/HCPCS: 93005

== ENCOUNTER 2024-06-30 03:10 | Day surgery (SDC) | payer MEDICARE, SELFPAY ==
[2024-06-16 10:55] VITALS: BMI 21.9
--- NOTE | 2024-06-16 11:31 | PC.NURSE ---
Report to the Outpatient Waiting Room, entrance under the green pavilion located off [facility], at time ___8:30AM____ on date ___06/30/24____. Planned Procedure Time: __10:30AM .? Time changes happen often and if your time is changed the preop area will call you the afternoon before. - You and your visitor will be asked to self-screen and do not enter if you have any COVID symptoms. Please call surgeon if you need to reschedule. - A mask is optional within the hospital at this time. Patients may have clear liquids (water, carbonated beverages, clear teas, apple juice) until 3 hours prior to surgery with a maximum of 20 ounces. - No food from midnight until time of surgery and no smoking. This includes no chewing gum, candy or mints. Take only the following medications with a SIP of water on the morning of surgery: ____BREO ELLIPTA INHALER, VALACYCLOVIR, VENLAFAXINE. MAY USE ALBUTEROL INHALER NEEDED. DO NOT STOP ANY OF YOUR OTHER PRESCRIPTION MEDICATIONS PRIOR TO SURGERY EXCEPT THE FOLLOWING Medications to discontinue per physician ____HOLD ALL VITAMINS/SUPPLEMENTS 3 DAYS PRE-OP PER ANESTHESIA Date to take last dose 06/26/24 Please no make-up, nail arabic, hairspray, perfume, deodorant, or body powder the day of surgery.? No jewelry (including any body piercings) or valuables the day of surgery, leave them at home.? Please take a shower or bath the night before, or the morning of, surgery with an antibacterial soap.? Wear comfortable, loose fitting clothing.? - Jewelry must be removed prior to entering the operating room.? Rings and piercings that are not removed may be cut off. - The hospital will not accept responsibility for valuables.? - Please leave all valuables, including medications, at home the day of surgery. If you are going home after surgery, a licensed truck driver supervisor must drive you home.? - NO public transportation without another adult if you receive anesthesia. - We recommend that an adult stay with you for 24 hours following discharge. - We also recommend that you do not drive, make important decision, drink alcoholic beverages, or take any drugs that were not prescribed by your health care provider for at least 24 hours after your discharge time. Follow any additional instructions given to you from your surgeon. Telephone instructions given to ____PATIENT and asked if any additional questions and then verbalized understanding. Patient advised to call surgeon office or pre surgery nurse liaison [phone] if any additional questions.
[2024-06-30] VITALS (15 sets, daily range): BP systolic 132–165; BP diastolic 67–98; PULSE 66–93; RESP 12–20; TEMP 36.2–36.8; O2SAT 74–100; BMI 22.6
[2024-06-30] MEDS: LACTATED RINGERS 1,000 ML 30 ML IV CONT ×3 (09:25→16:28)
[2024-06-30] MEDS: KETOROLAC 15 MG/ML VIAL (*BKC) IV PUSH (09:29)
[2024-06-30] MEDS: ACETAMINOPHEN 500 MG TABLET 1000 MG PO (09:29)
--- NOTE | 2024-06-30 10:38 | WPDANESEPPF ---
Anes - Initial Pre Proc Eval Procedure: Operation Date: 06/30/24 10:30 Proposed Procedures p Robotic Assisted Laparoscopic Right Inguinal Hernia with Mesh, Possible Left Inguinal Hernia - Johnathan Armando MD s Open Umbilical Hernia Repair with No Mesh - Johnathan Armando MD Date/Time: 06/30/24 10:38 Surgeon: Johnathan Armando MD Pre Op Diagnosis: Reducible Rt Ing Hernia,Umb Hernia reducible .5cm Patient Data Age: 69 Gender: F Height: 1.52 m Weight: 51 kg Allergies Allergy/AdvReac Type Severity Reaction Status Date / Time iohexol Allergy Swelling Verified 06/30/24 10:37 [From contrast - CT, X-RAY] of Lip/Tongue/Throat Home Medications Medication Instructions Recorded Confirmed Type valacyclovir 500 mg tablet 500 mg PO DAILY 06/08/20 06/16/24 History venlafaxine 37.5 mg tablet 37.5 mg PO BID 06/08/20 06/16/24 History fluticasone furoate 100 1 ea inhalation DAILY 11/06/20 06/16/24 History mcg-vilanterol 25 mcg/dose inhalation powder (Breo Ellipta) atorvastatin 20 mg tablet 20 mg PO HS 01/06/24 06/16/24 History montelukast 10 mg tablet 10 mg PO HS 01/06/24 06/16/24 History acetaminophen 500 mg capsule 1,000 mg PO Q6H PRN Pain 06/16/24 06/16/24 History albuterol sulfate 90 mcg/actuation 2 puff inhalation Q4-6H PRN 06/16/24 06/16/24 History aerosol inhaler (Ventolin HFA) Shortness Of Breath Or Wheezing loratadine 10 mg tablet (Claritin) 10 mg PO DAILY PRN Sinus Symptoms 06/16/24 06/16/24 History multivitamin 1 tablet PO DAILY 06/16/24 06/16/24 History Patient hx anesthesia problems: none Family hx anesthesia problems: none Results Review: All pre-operative results and documents have been reviewed as part of the pre-operative evaluation. 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 Surgical History Surgical History History of left breast biopsy History of partial hysterectomy Family History Family History Father Family history of alcoholism Mother Family history of congestive heart failure Other Hypertension Social History Social History Smoking packs per day: 1 Smoking cigarettes per day: 20.0 Years smoked: 13 Smoking pack-years: 13.00 Smoking status: Former smoker Tobacco type: cigarettes Smoking end date: 01/25/87 Alcohol intake: current Do You Feel Safe in your Home?: Yes Lack of Transportation: No Lack of Food: Never True Current Housing: I Have Housing Concerned About Future Housing: No Difficulty Paying Gas/Electric Bills: No Difficulty Paying for Meds: No Currently Unemployed: No Education: Decline to Answer Difficulty w/ Childcare or Family Care: No Living arrangements: with family Additional living arrangements comments: SON & GRANDDAUGHTER Occupation/Education: retired Spiritual care concerns: No Anes - Eval Final PreProcedure Day of Procedure 06/30/24 10:38 Patient weight: normal Heart: regular rate and rhythm Lungs: decreased breath sounds Airway: Mallampati scale class II Neurological: alert and oriented Last oral intake: >/= 8 hours ASA classification: III Emergent: no Anesthetic plan: proceed Anesthesia type and monitoring: general ETT and standard monitoring Results Review: All pre-operative results and documents have been reviewed as part of the pre-operative evaluation. Informed Consent: The patient's anesthetic plan and its attendant risks and benefits were discussed with the patient/family/POA. Questions were solicited and answers provided to the satisfaction of the patient/family/POA.
--- NOTE | 2024-06-30 10:50 | WPDHPUPDATE1 ---
History and Physical Update Update Date/Time: 06/30/24 10:50 History and Physical has been reviewed, including an updated exam of the patient. There are NO changes in the patient's condition. Risks, benefits, and alternatives have been discussed and questions answered. Patient agrees to proceed with procedure.
[2024-06-30] MEDS: ceFAZolin 2 GM/D5W 50 ML 2 GM/50 ML BAG IVPB (11:00)
[2024-06-30] MEDS: LIDO 1%/EPINEPHRINE 1:100,000 20 ML VIAL 30 ML INFILTRATE (11:48)
[2024-06-30] MEDS: BUPivacaine HCL 0.5% PF 30 ML VIAL INFILTRATE (11:49)
--- NOTE | 2024-06-30 17:04 | SUR.PHASEII ---
Patient has been in outpatient recovery now for 2 hours. At this time she was bladder scanned and the results were 149ml in her bladder.
--- NOTE | 2024-06-30 18:02 | P.OP_ITS ---
Procedure Note - Detailed Date of Procedure 06/30/24 Pre-op Diagnosis Reducible Rt Ing Hernia,Umb Hernia reducible .5cm Post-op Diagnosis Other (Reducible right inguinal hernia, right femoral hernia, and reducible umbilical hernia.) Procedure Performed Robotic assisted laparoscopic right inguinal hernia repair with Bard 3D mid weight mesh and open umbilical hernia repair without mesh. Surgeon Johnathan Armando MD Supervisor Salvage Coby Rhodes REPRODUCTIVE SURGEON Anesthesia General Indications Patient is a 69-year-old female who noted the bulge in the right groin region. On exam she has reducible right inguinal hernia. She also has a very small umbilical hernia which is reducible as well. She presents now for robotic assisted laparoscopic repair of the right inguinal hernia with mesh and open repair of the umbilical hernia without mesh. Findings Patient was found have a large indirect right inguinal hernia. There were no incarceration of bowel or omentum within hernia sac. After dissecting off the peritoneal flap the patient was also noted to have a right femoral hernia containing fatty tissue. No evidence of a direct inguinal hernia was seen. The patient did have adhesions to the suprapubic region of the abdominal wall and bilateral lower quadrants. No bleeding or bowel injury occurred with the adhesiolysis. A large piece of Bard 3D mid weight mesh measuring [id number] was used for the repair of the right inguinal hernia covering both the indirect and femoral spaces. The small 0.5cm umbilical hernia defect was closed utilizing interrupted 0 Ethibond sutures to primary close the defect. Description of Procedure After informed consent was obtained patient brought to the operating room she was placed supine position and general endotracheal anesthesia was administered. The abdomen bilateral groin regions were then prepped and draped usual sterile fashion. A time-out was then performed correctly identifying the patient as well as procedure to be performed. Site marking was verified she was given perioperative IV antibiotics. I then entered the abdomen left upper quadrant utilizing a 5mm Optiview port. Once inside the abdomen insufflated to adequate pneumoperitoneum of 15mmHg of CO2. I could see there were omental adhesions to the lower anterior abdominal wall some adhesions in the right lower quadrant obscuring the view of the right groin region. These were all he shows of the omentum and not bowel. I then placed robotic trocar ports under direct visualization across the mid abdomen. The Haiku Deck robot was then brought to the patient's bedside and docked and the robotic arms were attached the robotic ports. Robotic instruments were then advanced into the abdomen under direct visualization. Then scrubbed out the procedure sent down at the robotic console to perform the dissection. Utilizing energized hook hook cautery and robotic dissection I was able to perform adhesiolysis of the omental adhesions off of the lower anterior abdominal wall the right lower quadrant abdominal wall. This is done very carefully without any bleeding and without injury to any of the bowel. This then afforded me a clear view of the right lower quadrant and right groin region. I could see there was a fairly large indirect right inguinal hernia. No evidence of a direct inguinal hernia was seen. I then proceeded to make a peritoneal flap across the right lower quadrant of the abdomen starting anterior medial to the right anterior superior iliac spine extending it across the midline through the median umbilical ligament. Dissection carried this avascular preperitoneal plane distally until I reached the internal ring on the right side. Identified the inferior epigastric vessels on the right side and preserved these without injury. I dissected medially down to the pubic tubercle and down across the midline of the pubic symphysis with robotic dissection and down into the space of Retzius for couple cm. I then proceeded to reduce the large indirect inguinal hernia sac and the internal ring. Because this is a female I went ahead and divided the round ligament with electrocautery and made sure was hemostatic. This allowed dissection and eversion of the hernia sac pre easily. There was a cord lipoma extending down into the internal ring which was reduced and resected. It was removed from the abdomen and discarded. There was no evidence of a direct inguinal hernia. As I dissected more laterally on the pubic tubercle on the right side I encounter what would appear to be a small femoral hernia. Within the femoral hernia was just some preperitoneal fatty tissue. I then dissected the peritoneal flap proximally up onto the psoas muscle so that I could place the mesh without rolling of the mesh with closing the peritoneum. I then measured the space and a 16x10 large piece of Bard 3D mid weight mesh was used for the repair. It was placed into the abdomen through the bedside assistant speech language pathologist trocar port site and placed in the dissected space in the right groin region. It laid out very nicely without any tension. I then secured the mesh medially to the tissues around the pubic tubercle utilizing 2-0 Vicryl sutures. Laterally the mesh was secured to the muscle tissue anterior and medial to the right anterior superior iliac spine. I then further secured the mesh to the tissue where the potential space was located and the mesh covered the femoral defect with wide overlap. The mesh actually cover the home myopectineal orifice with wide overlap. I then proceeded to close the peritoneal flap. A running 2-0 absorbable V lock suture was used to close the flap. Once this was done all the mesh was excluded from the intra-abdominal viscera. A small hole in the peritoneal flap was then closed utilizing an interrupted 2-0 Vicryl suture. I then checked in hemostasis was good. I then procedure remove all the trocar ports under visualization. All port sites were hemostatic and allowed the abdomen decompressed. I then proceeded to close the umbilical fascial hernia defect. This defect was about 0.5cm in diameter. Through the existing periumbilical small incision I then placed interrupted 0 Ethibond sutures to close the defect approximating the edges without any tension. On incisions were then irrigated sterile saline solution hemostasis was good. The 10mm left upper quadrant trocar port fascial defect was closed utilizing 0 Vicryl suture the skin edges in all the port sites were then closed utilizing a running subcuticular 4-0 Monocryl suture. The incisions were then cleaned and then skin glue was applied. The patient tolerated the procedure well no complications. All sponges, needles, and instrument counts were correct at the end procedure. EBL was _25__cc. The patient was awakened and taken to recovery in stable and satisfactory condition. Implants Bard 3D mid weight mesh [id number] right groin. Estimated Blood Loss 25 Drains No Packing No Pathology None sent Complications No immediate complications Condition Stable Disposition PACU [facility] Billing Surgery - Charge Forward: Surgery Billing
== END 2024-06-30 17:33 | disposition home or self-care (01) ==
PROVIDERS: PCP Internal Medicine; Visit Provider Surgery
PROC: 8E0Y4CZ Robotic Assisted Procedure of Lower Extremity, Percutaneous Endoscopic Approach (ICD-10-PCS; CPT 49650; principal; 2024-06-30 10:30)
PROC: (CPT 49650; 2024-06-30 10:30)
DX: K40.90 Unilateral inguinal hernia, without obstruction or gangrene, not specified as recurrent (principal); K42.9 Umbilical hernia without obstruction or gangrene; K66.0 Peritoneal adhesions (postprocedural) (postinfection); J44.9 Chronic obstructive pulmonary disease, unspecified; Z79.51 Long term (current) use of inhaled steroids; Z98.890 Other specified postprocedural states; Z87.891 Personal history of nicotine dependence; Z87.898 Personal history of other specified conditions; Z86.79 Personal history of other diseases of the circulatory system; Z82.49 Family history of ischemic heart disease and other diseases of the circulatory system
CPT/HCPCS: 49650; 49591; S2900; 36415; 86850; 86900; 86901; A9270; C1781; J0690; J1100; J1171; J1885; J2004; J2250; J2405; J2704; J3010; J7120

== ENCOUNTER 2024-07-12 14:14 | Outpatient (CLI) | payer MEDICARE, SELFPAY ==
[2024-07-12 14:51] LABS: Anion Gap 8 mmol/L (4-12); Blood Urea Nitrogen 17 mg/dL (7-18); Calcium 9.2 mg/dL (8.5-10.1); Carbon Dioxide 29 mmol/L (21-32); Chloride 107 mmol/L (98-108); Estimated Glomerular Filt Rate > 60; Glucose 89 mg/dL (70-99); Osmolality Calculated 298 mOsm/kg (285-295); Potassium 4.9 mmol/L (3.5-5.1); Sodium 144 mmol/L (136-145)
== END 2024-07-12 14:15 | disposition home or self-care (01) ==
LOC: CHSLAB 14:16
PROVIDERS: PCP Internal Medicine; Visit Provider Internal Medicine
DX: E87.5 Hyperkalemia (principal)
CPT/HCPCS: 36415; 80048

== ENCOUNTER 2025-01-24 12:45 | Outpatient (CLI) | payer MEDICARE, SELFPAY ==
[2025-01-24 12:52] VITALS: BMI 24.0
[2025-01-24 13:04] VITALS: BP 139/76; PULSE 80; RESP 14; TEMP 36.5; O2SAT 98
[2025-01-24] MEDS: ZOLEDRONIC ACID 5 MG/100 ML 100 ML 400 MG IVPB (13:10)
[2025-01-24 13:33] VITALS: BP 126/73; PULSE 72; RESP 14
--- NOTE | 2025-01-24 13:35 | PC.NURSE ---
Tolerated Reclast infusion well. SEE MAR/patient care notes.
== END 2025-01-24 12:46 | disposition home or self-care (01) ==
PROVIDERS: PCP Internal Medicine; Visit Provider Internal Medicine
DX: M81.0 Age-related osteoporosis without current pathological fracture (principal)
CPT/HCPCS: 96374; J3489

== ENCOUNTER 2025-01-31 11:04 | Outpatient (CLI) | payer MEDICARE, SELFPAY ==
--- OUTSIDE RECORDS SUMMARY | 2025-01-31 11:22 | XMS_ITS | Encounter Summary ---
Author Organization [facility] Address [address] [place] [address] Care Team Providers Care Sterile Tech Name Role Phone Starr Jacinto MD Primary Care Provider [phone] Encounter Details Date Type Department Care Team (Late st Contact Info) Description 01/02/2019 Abstract [facility] CONVERSION [address] [place] [address] , Generic Conversion, Social History Tobacco Use Types Packs/Day Years Used Date Smoking Tobacco: Never Assessed Comments Unknown Sex and Gender Information Value Date Recorded Sex Assigned at Female 09/07/2024 12:38 PM LATHMAKER Legal Sex Female 4:44 PM CDT Gender Identity Not on file Sexual Orientation Straight 09/01/2024 8: 42 AM LATHMAKER documented as of this encounter Plan of Treatment Upcoming Encounters Date Type Department Care Team (Late st Contact Info) Description 05/12/2025 10:00 AM CDT Office Visit [facility] [address] [place] [address] [place] [phone] Courtney Humphreys MD [address] [place] [address] documented as of this encounter Visit Diagnoses Not on filedocumented in this encounter Care Teams Sterile Tech Relationship Specialty Start Date End Date Starr Jacinto MD [address] [place] [address] PCP - General INTERNAL MEDICINE 12/20/20 documented as of this encounter
--- OUTSIDE RECORDS SUMMARY | 2025-01-31 11:22 | XMS_ITS | Encounter Summary ---
Author Organization [facility] Address [address] [place] [address] Care Team Providers Care Balancing Machine Set Up Worker Name Role Phone Starr Jacinto MD Primary Care Provider [phone] Reason for Visit * Reason Onset Date Comments Advice 09/14/2024 Returned Call 09/14/2024 Encounter Details Date Type Department Care Team (Late st Contact Info) Description 09/14/2024 Telephone [facility]ispecialty [facility] [address] [place] [phone] Courtney Humphreys MD [address] [place] [address] Advice; Returned Call Social History Tobacco Use Types Packs/Day Years Used Date Smoking Tobacco: Former Cigarettes Smokeless Tobacco: Never Comments:Quit 34 yrs ago Alcohol Use Standard Drinks/Week Comments Yes 0 (1 standard drink = 0.6 oz pur e alcohol) once or twice Comments No Sex and Gender Information Value Date Recorded Sex Assigned at Female 09/07/2024 12:38 PM FRUIT OR NUT PICKER Legal Sex Female 4:44 PM CDT Gender Identity Not on file Sexual Orientation Straight 09/01/2024 8: 42 AM FRUIT OR NUT PICKER documented as of this encounter Progress Notes * Lisa Kimbrough - 09/16/2024 9:33 AM CST Patient returning call States she was already advised, appreciates the telephone call. Understands and will keep her October appt. T OR NUT PICKER documented in this encounter Plan of Treatment Upcoming Encounters Date Type Department Care Team (Late st Contact Info) Description 05/12/2025 10:00 AM CDT Office Visit [facility] [place] [address] [place] [address] [place] [phone] Courtney Humphreys MD [address] [place] [address] documented as of this encounter Visit Diagnoses Not on filedocumented in this encounter Care Teams Balancing Machine Set Up Worker Relationship Specialty Start Date End Date Starr Jacinto MD [address] [place] [id number] PCP - General INTERNAL MEDICINE 12/20/20 documented as of this encounter
--- OUTSIDE RECORDS SUMMARY | 2025-01-31 11:22 | XMS_ITS | Encounter Summary ---
Author Organization [facility] Address [facility] [place] [address] Care Team Providers Care Catering Truck Driver Name Role Phone Satrr Jacinto MD Primary Care Provider [phone] Encounter Details Date Type Department Care Team (Late st Contact Info) Description 01/22/2023 MyChart Message Enc [facility] [address] [place] [address] [place], [facility] Provider Air Quality Message Social History Tobacco Use Types Packs/Day Years Used Date Smoking Tobacco: Former Cigarettes Smokeless Tobacco: Never Comments:Quit 34 yrs ago Alcohol Use Standard Drinks/Week Comments Yes 0 (1 standard drink = 0.6 oz pur e alcohol) once or twice Comments No Sex and Gender Information Value Date Recorded Sex Assigned at Female 09/07/2024 12:38 PM NURSE SPECIALIST Legal Sex Female 4:44 PM CDT Gender Identity Not on file Sexual Orientation Straight 09/01/2024 8: 42 AM NURSE SPECIALIST documented as of this encounter Plan of Treatment Upcoming Encounters Date Type Department Care Team (Late st Contact Info) Description 05/12/2025 10:00 AM CDT Office Visit [facility] [address] [place] [address] Courtney Humphreys MD [address] [place] [address] documented as of this encounter Visit Diagnoses Not on filedocumented in this encounter Care Teams Catering Truck Driver Relationship Specialty Start Date End Date Starr Jacinto MD [address] [place] [address] PCP - General INTERNAL MEDICINE 12/20/20 documented as of this encounter
--- OUTSIDE RECORDS SUMMARY | 2025-01-31 11:22 | XMS_ITS | Clinical Summary ---
Author Organization [facility] Address [facility] [place] [address] Care Team Providers Care Rf Design Engineer Name Role Phone Starr Jacinto MD Primary Care Provider [phone] Allergies Active Allergy Reactions Criticality Noted Date Comments Iodine Nausea Only,Throat swelling 08/12/19 25 Medications valACYclovir 500 MG tablet TAKE 1 CAPLET BY MOUTH ONCE DAILY 1 Active venlafaxine 37.5 MG tablet Take 1 tablet (37.5 mg total) by mouth 2 (two) times daily. 1 Active atorvastatin (LIPITOR) 20 MG tablet Take 1 tablet (20 mg total) by mouth nightly at bedtime. Active vitamin B-1 (THIAMINE) 50 MG tablet Take 1 tablet (50 mg total) by mouth daily. Pt not sure of dosage Active BREO ELLIPTA 100-25 MCG/ACT inhalerIndication s:Moderate persistent asthma without complication (HHS/HCC) Inhale 1 puff into the lungs daily. 60 each 11 5 Active montelukast (SINGULAIR) 10 MG tabletIndications :Moderate persistent asthma without complication (HHS/HCC) Take 1 tablet (10 mg total) by mouth nightly at bedtime. at bedtime 30 tablet 11 5 Active Active Problems Problem Noted Date Diagnosed Date Shortness of breath 05/27/2022 Snoring 12/24/2020 Chronic pulmonary aspiration 12/24/2020 Moderate persistent asthma without complication (HHS/HCC) 12/24/2020 Immunizations Immunization Administration Dates Next Due Flucelvax 6 Months+ (Prefilled Syringe) 09/10/19 18 Pneumococcal (Prevnar 13) 02/01/2015 Pneumovax 23 25 Mcg/0.5Ml Ij Inj 10/13/2018 Zoster (Zostavax) 00323 Unt/0.65Ml 11/19/2013 Social History Tobacco Use Types Packs/Day Years Used Date Smoking Tobacco: Former Cigarettes Smokeless Tobacco: Never Tobacco Cessation:Counseling Given: Not Answered Comments:Quit 34 yrs ago Alcohol Use Standard Drinks/Week Comments Yes 0 (1 standard drink = 0.6 oz pur e alcohol) once or twice Comments No Sex and Gender Information Value Date Recorded Sex Assigned at Female 09/07/2024 12:38 PM SHOT FIREMAN Legal Sex Female 4:44 PM CDT Gender Identity Not on file Sexual Orientation Straight 09/01/2024 8: 42 AM SHOT FIREMAN Last Filed Vital Signs Vital Sign Reading Time Taken Comments Blood Pressure 128/67 08/12/2024 9:37 AM SHOT FIREMAN Pulse 66 08/12/2024 9:35 AM SHOT FIREMAN Temperature - - Respiratory Rate 16 08/12/2024 9:35 AM SHOT FIREMAN Oxygen Saturation 100% 08/12/2024 9:35 AM SHOT FIREMAN Inhaled Oxygen Concentration - - Weight 52.1 kg (114 lb 12.8 oz) 08/12/2024 9:35 AM SHOT FIREMAN Height 149.9 cm (4' 11) 08/12/2024 9:35 AM SHOT FIREMAN Body Mass Index 23.19 08/12/2024 9:35 AM SHOT FIREMAN Plan of Treatment Upcoming Encounters Date Type Department Care Team (Late st Contact Info) Description 05/12/2025 10:00 AM CDT Office Visit [facility] [address] [place] [address] Courtney Humphreys MD [address] [place] [address] Health Maintenance Due Date Last Done Comments Colorectal Cancer Screening Colonoscopy (10 Years) 1953 Hepatitis C 1971 DTaP, Tdap and Td Vaccines ( 1 - Tdap) 1972 Mammogram Screening 1993 RSV Immunization or 60+ Years (1 - Risk 60-74 years 1-dose series) 2013 Zoster Vaccines (2 of 3) 01/14/2014 11/19/2013 Annual Medicare Wellness Visit 2018 Dexa Scan (General) 2018 COVID-19 Vaccine ( - 2023- 5 season) 2024 12/02/2020 PHQ-2 (Physician [place]) 07/28/2024 Pneumococcal Vaccine: 50+ Years Completed 10/13/2018, 02/01/2015 Meningococcal B Vaccine Aged Out No l onger eligible based on patient's age to complete this topic Meningococcal Vaccine Aged Out No sea sarah eligible based on patient's age to complete this topic RSV Immunizations Under 20 Months Aged Out No longer eligible b ased on patient's age to complete this topic Insurance [facility]ICARE [facility] Care Teams Rf Design Engineer Relationship Specialty Start Date End Date Starr Jacinto MD [address] [place] [address] PCP - General INTERNAL MEDICINE 12/20/20
--- OUTSIDE RECORDS SUMMARY | 2025-01-31 11:22 | XMS_ITS | Encounter Summary ---
Author Organization [facility] Address [address] [place] [address] Care Team Providers Care Sow Manager Name Role Phone Starr Jacinto MD Primary Care Provider [phone] Reason for Visit * Reason Onset Date Comments Reschedule 05/16/2023 05/22/23 Encounter Details Date Type Department Care Team (Late st Contact Info) Description 05/16/2023 Telephone [facility] Multispecialty [facility] [address] [place] [address] Courtney Humphreys MD [address] [place] [address] Reschedule (05/22/23) Social History Tobacco Use Types Packs/Day Years Used Date Smoking Tobacco: Former Cigarettes Smokeless Tobacco: Never Comments:Quit 34 yrs ago Alcohol Use Standard Drinks/Week Comments Yes 0 (1 standard drink = 0.6 oz pur e alcohol) once or twice Comments No Sex and Gender Information Value Date Recorded Sex Assigned at Female 09/07/2024 12:38 PM CREELER Legal Sex Female 4:44 PM CDT Gender Identity Not on file Sexual Orientation Straight 09/01/2024 8: 42 AM CREELER documented as of this encounter Progress Notes * Nidhi Wasserman MA - 05/19/2023 2:03 PM CDT Left voicemail for patient to call us back * Kathryn Whalen - 05/16/2023 11:39 AM CDT Pt requesting to reschedule the 05/22/23 @ 9:20 appointment due to pt's spouse chemotherapy being scheduled for that day Pt call back # [phone] documented in this encounter Plan of Treatment Upcoming Encounters Date Type Department Care Team (Late st Contact Info) Description 05/12/2025 10:00 AM CDT Office Visit [facility] [address] [place] [address] Courtney Humphreys MD [address] [place] [address] documented as of this encounter Visit Diagnoses Not on filedocumented in this encounter Care Teams Sow Manager Relationship Specialty Start Date End Date Starr Jacinto MD [address] [place] [address] PCP - General INTERNAL MEDICINE 12/20/20 documented as of this encounter
[2025-01-31 11:37] LABS: Glucose Urine UA Negative (Negative); Leukocyte Esterase Ur Negative (Negative); Nitrate Urine Negative (Negative); Specific Grav Ur <= 1.005 (1.010-1.020)
[2025-01-31 11:40] LABS: Add Urine Microscopic? YES; Appearance Urine Sl Cloudy (Clear)
[2025-01-31 13:05] LABS: Alanine Aminotransferase 16 U/L (6-35); Albumin Level 4.5 g/dL (3.5-5.1); Alkaline Phosphatase 65 U/L (38-126); Anion Gap 2 mmol/L (4-12); Aspartate Amino Transferase 29 U/L (14-36); Bilirubin,Total 0.7 mg/dL (0.2-1.3); Blood Urea Nitrogen 13 mg/dL (7-17); Calcium 9.4 mg/dL (8.4-10.2); Carbon Dioxide 29 mmol/L (22-30); Chloride 105 mmol/L (98-107); Cholesterol 237 mg/dL (0-200); Creatine Kinase 67 U/L (30-135); Estimated Glomerular Filt Rate > 60; Glucose 96 mg/dL (65-110); HDL Direct 107 mg/dL; Osmolality Calculated 282 mOsm/kg (285-295); Potassium 4.6 mmol/L (3.4-5.0); Sodium 136 mmol/L (137-145); Total Protein 7.0 g/dL (6.3-8.2); Triglycerides 88 mg/dL (<150)
== END 2025-01-31 11:05 | disposition home or self-care (01) ==
LOC: CHSLAB 11:06
PROVIDERS: PCP Internal Medicine; Visit Provider Internal Medicine
DX: M81.0 Age-related osteoporosis without current pathological fracture (principal); E78.2 Mixed hyperlipidemia; I10 Essential (primary) hypertension
CPT/HCPCS: 36415; 80053; 80061; 81001; 82306; 82550

== ENCOUNTER 2025-03-21 07:41 | Outpatient (CLI) | payer MEDICARE, SELFPAY ==
--- NOTE | ~2025-03-21 | MM_ITS ---
EXAMINATION: MM screening [facility] BI w michelle HISTORY: Screening TECHNIQUE: Craniocaudal and mediolateral oblique 3-D tomosynthesis images were obtained and synthetic 2-D images were generated. CAD analysis was submitted and interpreted. COMPARISON: Comparison to multiple prior studies sequentially, with oldest reviewed study dated 08/25/2015. BREAST PARENCHYMAL COMPOSITION: Not dense: There are scattered areas of fibroglandular density. FINDINGS: There is no evidence of suspicious mass, calcification, or architectural distortion to suggest malignancy in either breast. There has been no suspicious interval change. IMPRESSION: 1. No mammographic evidence of malignancy. 2. Recommend routine screening mammography in one year. BI-RADS Category 1: Negative Reviewed, dictated and finalized at location O.
--- OUTSIDE RECORDS SUMMARY | 2025-03-21 07:44 | XMS_ITS | Clinical Summary ---
Author Organization [facility] Address [facility] [place] [address] Care Team Providers Care Shop Estimator Name Role Phone Starr Jacinto MD Primary Care Provider [phone] Allergies Active Allergy Reactions Criticality Noted Date [...] 25 Mcg/0.5Ml Ij Inj 10/13/2018 Zoster (Zostavax) 35127 Unt/0.65Ml 11/19/2013 Social History Tobacco Use Types Packs/Day Years Used Date Smoking Tobacco: Former Cigarettes Smokeless Tobacco: Never Tobacco Cessation:Counseling Given: Not Answered Comments:Quit 34 yrs ago Alcohol Use Standard Drinks/Week Comments Yes 0 (1 standard drink = 0.6 oz pur e alcohol) once or twice Comments No Sex and Gender Information Value Date Recorded Sex Assigned at Female 09/07/2024 12:38 PM STATUE MAKER Legal Sex Female 4:44 PM CDT Gender Identity Not on file Sexual Orientation Straight 09/01/2024 8: 42 AM STATUE MAKER Last Filed Vital Signs Vital Sign Reading Time Taken Comments Blood Pressure 128/67 08/12/2024 9:37 AM STATUE MAKER Pulse 66 08/12/2024 9:35 AM STATUE MAKER Temperature - - Respiratory Rate 16 08/12/2024 9:35 AM STATUE MAKER Oxygen Saturation 100% 08/12/2024 9:35 AM STATUE MAKER Inhaled Oxygen Concentration - - Weight 52.1 kg (114 lb 12.8 oz) 08/12/2024 9:35 AM STATUE MAKER Height 149.9 cm (4' 11) 08/12/2024 9:35 AM STATUE MAKER Body Mass Index 23.19 08/12/2024 9:35 AM STATUE MAKER Plan of Treatment Health Maintenance Due Date Last Done Comments Colorectal Cancer Screening Colonoscopy (10 Years) 1953 Hepatitis C 1971 DTaP, Tdap and Td Vaccines ( 1 - Tdap) 1972 Mammogram Screening 1993 RSV Immunization or 60+ Years (1 - Risk 60-74 years 1-dose series) 2013 Zoster Vaccines (2 of 3) 01/14/2014 11/19/2013 Annual Medicare Wellness Visit 2018 Dexa Scan (General) 2018 COVID-19 Vaccine (2 - 2023- 5 season) 2024 12/02/2020 PHQ-2 (Physician [place]) 07/28/2024 Pneumococcal Vaccine: 50+ Years Completed 10/13/2018, 02/01/2015 Meningococcal B Vaccine Aged Out No l onger eligible based on patient's age to complete this topic Meningococcal Vaccine Aged Out No sea sarah eligible based on patient's age to complete this topic RSV Immunizations Under 20 Months Aged Out No longer eligible b ased on patient's age to complete this topic Insurance MEDICARE [facility] Care Teams Shop Estimator Relationship Specialty Start Date End Date Starr Jacinto MD [address] [place] [address] PCP - General INTERNAL MEDICINE 12/20/20
--- OUTSIDE RECORDS SUMMARY | 2025-03-21 07:44 | XMS_ITS | Encounter Summary ---
Author Organization [facility] Address [facility] [place] [address] Care Team Providers Care Maintenance Mgr Name Role Phone Starr Jacinto MD Primary Care Provider [phone] Encounter Details Date Type Department Care Team (Late st Contact Info) Description 01/22/2023 MyChart Message Enc [facility] Medical [facility] - [facility] [address] [place], [place] [id number] Mychart, [facility] Provider Air Quality Message Social History Tobacco Use Types Packs/Day Years Used Date Smoking Tobacco: Former Cigarettes Smokeless Tobacco: Never Comments:Quit 34 yrs ago Alcohol Use Standard Drinks/Week Comments Yes 0 (1 standard drink = 0.6 oz pur e alcohol) once or twice Comments No Sex and Gender Information Value Date Recorded Sex Assigned at Female 09/07/2024 12:38 PM TRACK MANAGER Legal Sex Female 4:44 PM CDT Gender Identity Not on file Sexual Orientation Straight 09/01/2024 8: 42 AM TRACK MANAGER documented as of this encounter Plan of Treatment Not on file documented as of this encounter Visit Diagnoses Not on filedocumented in this encounter Care Teams Maintenance Mgr Relationship Specialty Start Date End Date Starr Jacinto MD [address] [place] [address] PCP - General INTERNAL MEDICINE 12/20/20 documented as of this encounter
== END 2025-03-21 07:42 | disposition home or self-care (01) ==
LOC: CHSIMG 07:42
PROVIDERS: PCP Internal Medicine; Visit Provider Internal Medicine
DX: Z12.31 Encounter for screening mammogram for malignant neoplasm of breast (principal)
CPT/HCPCS: 77063; 77067

== ENCOUNTER 2025-05-31 14:00 | Emergency (ER) | payer MEDICARE, SELFPAY ==
--- NOTE | ~2025-05-31 | XR_ITS ---
XR humerus RT, XR shoulder RT min 2V 05/31/2025 15:11 Indication: Right arm pain after fall Procedure: 4 views right shoulder and 2 views right humerus Comparison: No prior studies for comparison. Findings: Moderate osteoarthritis of the right glenohumeral joint. There are multiple calcified granulomas of the right lung. No fracture, subluxation or dislocation. There are degenerative changes of the right elbow. No soft tissue abnormality. 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 Reviewed, dictated and finalized at location O. 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
--- NOTE | ~2025-05-31 | CT_ITS ---
EXAMINATION: CT brain wo con, 05/31/2025 14:34 MISDRAW HAND HISTORY: Fall off ladder landing on RT side, ear ringing, headache COMPARISON: No comparisons available. Technique: Axial images obtained of the brain without contrast. One or more of the following dose reduction techniques were used: automated exposure control, adjustment of the mA and/or kV according to patient size, use of iterative reconstruction technique. Findings: No acute infarct or parenchymal hemorrhage. No abnormal mass or mass effect. No midline shift. No extra-axial fluid collections. No hydrocephalus. Mastoid air cells unremarkable. Sinuses and orbits unremarkable. No acute fracture. No significant facial or scalp soft tissue swelling evident. No radiopaque foreign body is seen. Impression: 1.No acute intracranial abnormality. Reviewed, dictated and finalized at location P. RAW HAND Impression: 1.No acute intracranial abnormality.
--- NOTE | ~2025-05-31 | CT_ITS ---
EXAMINATION: CT cervical spine wo con COMPARISON: None HISTORY: Fall off ladder landing on RT side TECHNIQUE: Axial images were obtained through the spine without IV contrast. Coronal, sagittal reconstruction images were obtained from the axial views. CT scan performed using dose optimization techniques including the following automated exposure control; adjustment of mA and/or kV; use of iterative reconstruction technique. Automatic exposure control was used to reduce radiation dose. Permanent radiation dose record is archived to PACS. FINDINGS: Grade 1 anterolisthesis of C4 on C5, no fracture identified. Moderate loss of disc height at C4-5 C5-6 and C6-7 with moderate to severe canal and foraminal stenosis. Soft tissues unremarkable. Impression: No acute abnormality. Reviewed, dictated and finalized at location P. TERIA TABLE ATTENDANT Impression: No acute abnormality.
--- NOTE | ~2025-05-31 | XR_ITS ---
XR hip LT min 3V w AP pelvis 05/31/2025 15:11 Indication: Left hip pain after fall Procedure: AP pelvis and 2 views left hip Comparison: No prior studies for comparison. Findings: No fracture, subluxation or dislocation. There is lower lumbar spondylosis. No soft tissue abnormality. No foreign bodies. Impression: 1: No acute fracture. Reviewed, dictated and finalized at location O. CHUTE FOLDER Impression: 1: No acute fracture.
[2025-05-31 14:00] VITALS: BP 145/90; PULSE 74; RESP 16; TEMP 36.8; O2SAT 100
--- NOTE | 2025-05-31 14:26 | ED.FALL ---
HPI - Fall General Chief Complaint: Fall Stated Complaint: fall from ladder 8-10ft Time Seen by Provider: 05/31/25 14:26 Source: patient Mode of arrival: ambulatory Limitations: no limitations History of Present Illness HPI Narrative: Patient is a 70-year-old female with a fall from 8 ft off of a ladder and a pole prior to arrival. No syncope. She did hit her head. She hit her right shoulder and right humerus as well as her left hip. She has some superficial laceration to the right arm and her tetanus is up-to-date 2022. complaint: fall Onset (ago): minute(s) (Thirty) Fall from: from height (distance) (8 ft off a ladder/pole) Fall witnessed: yes, by family Place fall occurred: home Loss of consciousness: none Prolonged down time: no Symptoms prior to fall: none Context: tripped/slipped Location of injury: head and neck Location of injury - extremities: Left: thigh and Right: shoulder and arm Severity: moderate Severity scale (1-10): 5 Quality: sharp Associated symptoms (after fall): denies Related Data Home Medications ?Medication ?Instructions ?Recorded ?Confirmed ?Last Taken ?Type valacyclovir 500 mg tablet 500 mg PO DAILY 06/08/20 01/24/25 06/30/24 06:30 History venlafaxine 37.5 mg tablet 37.5 mg PO BID 06/08/20 01/24/25 06/30/24 06:30 History fluticasone furoate 100 1 ea inhalation DAILY 11/06/20 01/24/25 06/30/24 06:30 History mcg-vilanterol 25 mcg/dose inhalation powder (Breo Ellipta) atorvastatin 20 mg tablet 20 mg PO HS 01/06/24 01/24/25 Unknown History montelukast 10 mg tablet 10 mg PO HS 01/06/24 01/24/25 Unknown History acetaminophen 500 mg capsule 1,000 mg PO Q6H PRN Pain 06/16/24 01/24/25 Unknown History albuterol sulfate 90 mcg/actuation 2 puff inhalation Q4-6H PRN 06/16/24 01/24/25 Unknown History aerosol inhaler (Ventolin HFA) Shortness Of Breath Or Wheezing loratadine 10 mg tablet (Claritin) 10 mg PO DAILY PRN Sinus Symptoms 06/16/24 01/24/25 Unknown History multivitamin 1 tablet PO DAILY 06/16/24 01/24/25 06/26/24 History Allergies Allergy/AdvReac Type Severity Reaction Status Date / Time iohexol (From contrast - CT, Allergy Swelling Verified 05/31/25 14:21 X-RAY) of Lip/Tongue/Throat Review of Systems Review of Systems: All systems reviewed & are unremarkable except as noted in HPI and below Constitutional: Constitutional: Reports no additional constitutional complaints Eyes: Eyes: Reports no additional eye complaints ENT: Reports system reviewed and no additional complaints, except as documented Cardiovascular: Cardiovascular: Reports no additional cardiovascular complaints Respiratory: Respiratory: Reports no additional respiratory complaints Gastrointestinal: Gastrointestinal: Reports no additional gastrointestinal complaints Genitourinary: Genitourinary: Reports no additional female genitourinary complaints Musculoskeletal: Musculoskeletal: Reports no additional musculoskeletal complaints Integumentary/Breasts: Skin/Breast: Reports system reviewed and no additional complaints, except as docu Neurologic: Reports system reviewed and no additional complaints, except as documented Psychiatric: Psychiatric: Reports no additional psychiatric complaints Endocrine: Endocrine: Reports no additional endocrine complaints Hematologic/Lymphatic: Hematologic/Lymphatic: Reports no additional hematologic/lymphatic complaints Allergic/Immunologic: Allergic/Immunologic: Reports no additional allergic/immunologic complaints PMFSH Past Medical History Medical History Mitral valve prolapse 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 Armando History of left breast biopsy History of partial hysterectomy Family History Family History Father Family history of alcoholism Mother Family history of congestive heart failure Other Hypertension Social History Social History Smoking packs per day: 1 Smoking cigarettes per day: 20.0 Years smoked: 13 Smoking pack-years: 13.00 Smoking status: Former smoker Tobacco type: cigarettes Smoking end date: 01/25/87 Alcohol intake: current Do You Feel Safe in your Home?: Yes Lack of Transportation: No Lack of Food: Never True Current Housing: I Have Housing Concerned About Future Housing: No Difficulty Paying Gas/Electric Bills: No Difficulty Paying for Meds: No Currently Unemployed: No Education: Decline to Answer Difficulty w/ Childcare or Family Care: No Living arrangements: with family Additional living arrangements comments: SON & GRANDDAUGHTER Occupation/Education: retired Spiritual care concerns: No Exam Const: General: healthy appearing Nutritional Appearance: well nourished Orientation/consciousness: patient oriented x3 HENMT: Head: normal to inspection Ears: external ears normal Face/Nose/Sinus: Normal external nose present Eyes: Conjunctivae: conjunctivae normal Pupils: Equal, round and reactive pupils present EOM: EOMs intact bilaterally Neck: Neck: normal visual inspection Chest: Chest palpation & inspection: normal inspection of the chest Resp: Effort & Inspection: normal respiratory effort and not labored Auscultation: clear to auscultation bilaterally and no crackles Cardio: Rate: regular rate Rhythm: regular rhythm Heart sounds: no murmurs GI: Inspection: non-distended GI Palp: Yes Soft to palpation and No Tenderness to palpation present (GI) Auscultation: normal bowel sounds : General: Yes bladder normal to palpation Back/Spine/Pelvis: Back: no CVA tenderness Skin: General skin exam: normal color Rashes: no rashes Wounds: wound noted Other: Right arm has superficial linear laceration 5 cm (no repair needed) Neuro: General: patient oriented x3, moves all extremities and no meningeal signs Other: Fast exam negative, NIH is 0, GCS is 15 Extrem: General: normal to inspection, no clubbing, cyanosis or edema and no pedal edema Other: Tender right shoulder to palpation as well as right arm with a superficial laceration of the right arm documented in skin exam; tender to the left hip palpation Psych: Mental Status: mental status grossly normal Affect: normal affect Attitude: cooperative Course Vital Signs Vital signs: Vital Signs Temperature 36.8 C 05/31/25 14:00 Pulse Rate 74 05/31/25 14:00 Respiratory Rate 16 05/31/25 14:00 Blood Pressure 145/90 H 05/31/25 14:00 Pulse Oximetry 100 05/31/25 14:00 Oxygen Delivery Room Air 05/31/25 14:00 Temperature 36.8 C 05/31/25 14:00 Pulse Rate 74 05/31/25 14:00 Respiratory Rate 16 05/31/25 14:00 Blood Pressure 145/90 H 05/31/25 14:00 Pulse Oximetry 100 05/31/25 14:00 Oxygen Delivery Room Air 05/31/25 14:00 MDM - Fall MDM Narrative Medical decision making narrative: Patient is a 70-year-old female with a fall from 8 ft off of a ladder and a pole prior to arrival. Multiple areas of injury. We will do x-rays. And a CT scan. No pain management at this time needed. Imaging Data Attestation: I personally reviewed and interpreted this imaging study as follows: Radiologist's impression: X-ray right shoulder shows no acute process X-ray right humerus is negative for acute process X-ray left hip and pelvis is negative for acute process CT scan of the head and neck were negative for acute process Discharge Plan Discharge Clinical Impression: Fall as cause of accidental injury at home as place of occurrence, Contusion, Trauma Patient Disposition: Home Condition: Stable Instructions: Contusion in Adults (ED), Fall Prevention (ED) Patient Language: Argentine Prescriptions: No Action fluticasone furoate-vilanterol [Breo Ellipta] 100-25 mcg/dose blister with device 1 ea INHALATION DAILY atorvastatin 20 mg Tablet 20 mg PO HS montelukast 10 mg Tablet 10 mg PO HS valacyclovir 500 mg Tablet 500 mg PO DAILY venlafaxine 37.5 mg Tablet 37.5 mg PO BID multivitamin Tablet 1 tablet PO DAILY loratadine [Claritin] 10 mg Tablet 10 mg PO DAILY PRN (Reason: Sinus Symptoms) acetaminophen 500 mg Capsule 1,000 mg PO Q6H PRN (Reason: Pain) albuterol sulfate [Ventolin HFA] 90 mcg/actuation HFA aerosol inhaler 2 puff INHALATION Q4-6H PRN (Reason: Shortness Of Breath Or Wheezing) Follow-up/Referrals: Starr Jacinto MD [Primary Care Provider, Internal Medicine] Time of Disposition: 15:54
[2025-05-31 14:30] VITALS: BP 143/82; PULSE 69; RESP 17; O2SAT 98
[2025-05-31 15:00] VITALS: BP 138/76; PULSE 69; RESP 17; O2SAT 98
[2025-05-31 15:30] VITALS: BP 160/71; PULSE 68; RESP 18; O2SAT 99
--- OUTSIDE RECORDS SUMMARY | 2025-05-31 15:39 | XMS_ITS | Clinical Summary ---
Author Organization [facility] Address [facility] [place] [address] Care Team Providers Care Package Pick Up Name Role Phone Starr Jacinto MD Primary Care Provider [phone] Allergies Active Allergy Reactions Criticality Noted Date [...] aspiration 12/24/2020 Moderate persistent asthma without complication 12/24/2020 Encounters Date Type Department Care Team Description 05/20/2025 Telephone [facility] Medical Group Multispecialty [facility] [address] [place] [address] Arlene Woodson MD Request (For nurse to call back ) from Last 3 Months Immunizations Immunization Administration Dates Next Due Flucelvax 6 Months+ (Prefilled Syringe) 09/10/19 18 Pneumococcal (Prevnar 13) 02/01/2015 Pneumovax 23 25 Mcg/0.5Ml Ij Inj 10/13/2018 Zoster (Zostavax) 67234 Unt/0.65Ml 11/19/2013 Social History Tobacco Use Types Packs/Day Years Used Date Smoking Tobacco: Former Cigarettes Smokeless Tobacco: Never Tobacco Cessation:Counseling Given: Not Answered Comments:Quit 34 yrs ago Alcohol Use Standard Drinks/Week Comments Yes 0 (1 standard drink = 0.6 oz pur e alcohol) once or twice Comments No Sex and Gender Information Value Date Recorded Sex Assigned at Female 09/07/2024 12:38 PM DYE MAKER Legal Sex Female 4:44 PM CDT Gender Identity Not on file Sexual Orientation Straight 09/01/2024 8: 42 AM DYE MAKER Last Filed Vital Signs Vital Sign Reading Time Taken Comments Blood Pressure 128/67 08/12/2024 9:37 AM DYE MAKER Pulse 66 08/12/2024 9:35 AM DYE MAKER Temperature - - Respiratory Rate 16 08/12/2024 9:35 AM DYE MAKER Oxygen Saturation 100% 08/12/2024 9:35 AM DYE MAKER Inhaled Oxygen Concentration - - Weight 52.1 kg (114 lb 12.8 oz) 08/12/2024 9:35 AM DYE MAKER Height 149.9 cm (4' 11) 08/12/2024 9: 35 AM DYE MAKER Body Mass Index 23.19 08/12/2024 9:35 AM DYE MAKER Plan of Treatment Health Maintenance Due Date Last Done Comments Colorectal Cancer Screening Colonoscopy (10 Years) 1953 Hepatitis C 1971 DTaP, Tdap and Td Vaccines ( 1 - Tdap) 1972 Mammogram Screening 1993 RSV Immunization or 60+ Years (1 - Risk 60-74 years 1-dose series) 2013 Zoster Vaccines (2 of 3) 01/14/2014 11/19/2013 Annual Medicare Wellness Visit 2018 Dexa Scan (General) 2018 PHQ-2 (Physician [place]) 07/28/2024 COVID-19 Vaccine (2 - 2024-2 6 season) 2025 12/02/2020 Influenza Adult (#1) 2025 09/10/2017 Pneumococcal Vaccine: 50+ Years Completed 10/13/2018, 02/01/2015 Hepatitis A Vaccines Aged Out No long er eligible based on patient's age to complete this topic Meningococcal B Vaccine Aged Out No l onger eligible based on patient's age to complete this topic Meningococcal Vaccine Aged Out No sea sarah eligible based on patient's age to complete this topic RSV Immunizations Under 20 Months Aged Out No longer eligible b ased on patient's age to complete this topic Insurance MEDICARE [facility] Care Teams Package Pick Up Relationship Specialty Start Date End Date Starr Jacinto MD [address] [place] [address] PCP - General INTERNAL MEDICINE 12/20/20
--- OUTSIDE RECORDS SUMMARY | 2025-05-31 15:39 | XMS_ITS | Encounter Summary ---
Author Organization [facility] Address [facility] [place] [address] Care Team Providers Care Centrifugal Supervisor Name Role Phone Starr Jacinto MD Primary Care Provider [phone] Encounter Details Date Type Department Care Team (Late st Contact Info) Description 01/22/2023 MyChart Message Enc [facility] Medical [facility] - [facility] [address] [place], [place] [address] Mychart, [facility] Provider Air Quality Message Social History Tobacco Use Types Packs/Day Years Used Date Smoking Tobacco: Former Cigarettes Smokeless Tobacco: Never Comments:Quit 34 yrs ago Alcohol Use Standard Drinks/Week Comments Yes 0 (1 standard drink = 0.6 oz pur e alcohol) once or twice Comments No Sex and Gender Information Value Date Recorded Sex Assigned at Female 09/07/2024 12:38 PM FIRER GLOST KILN Legal Sex Female 4:44 PM CDT Gender Identity Not on file Sexual Orientation Straight 09/01/2024 8: 42 AM FIRER GLOST KILN documented as of this encounter Plan of Treatment Not on file documented as of this encounter Visit Diagnoses Not on filedocumented in this encounter Care Teams Centrifugal Supervisor Relationship Specialty Start Date End Date Starr Jacinto MD [address] [place] [address] PCP - General INTERNAL MEDICINE 12/20/20 documented as of this encounter
--- OUTSIDE RECORDS SUMMARY | 2025-05-31 15:39 | XMS_ITS | Encounter Summary ---
Author Organization [facility] Address [address] [place] [id number] Care Team Providers Care Deck Builder Name Role Phone Starr Jacinto MD Primary Care Provider [phone] Encounter Details Date Type Department Care Team (Late st Contact Info) Description 01/02/2019 Abstract [facility] CONVERSION [address] [place] [address] , Generic Conversion, Social History Tobacco Use Types Packs/Day Years Used Date Smoking Tobacco: Never Assessed Comments Unknown Sex and Gender Information Value Date Recorded Sex Assigned at Female 09/07/2024 12:38 PM DREDGING INSPECTOR Legal Sex Female 4:44 PM CDT Gender Identity Not on file Sexual Orientation Straight 09/01/2024 8: 42 AM DREDGING INSPECTOR documented as of this encounter Plan of Treatment Not on file documented as of this encounter Visit Diagnoses Not on filedocumented in this encounter Care Teams Deck Builder Relationship Specialty Start Date End Date Starr Jacinto MD [address] [place] [address] PCP - General INTERNAL MEDICINE 12/20/20 documented as of this encounter
[2025-05-31 16:00] VITALS: BP 153/76; PULSE 68; RESP 16; O2SAT 99
--- OUTSIDE RECORDS SUMMARY | 2025-05-31 16:37 | XMS_ITS | Encounter Summary ---
Author Organization [facility] Address [facility] [place] [address] Care Team Providers Care Baker Name Role Phone Starr Jacinto MD Primary Care Provider [phone] Encounter Details Date Type Department Care Team (Late st Contact Info) Description 01/22/2023 MyChart Message Enc [facility] [address] [place], [place] [address] Mychart, [facility] Provider Air Quality Message Social History Tobacco Use Types Packs/Day Years Used Date Smoking Tobacco: Former Cigarettes Smokeless Tobacco: Never Comments:Quit 34 yrs ago Alcohol Use Standard Drinks/Week Comments Yes 0 (1 standard drink = 0.6 oz pur e alcohol) once or twice Comments No Sex and Gender Information Value Date Recorded Sex Assigned at Female 09/07/2024 12:38 PM TRAINING AND DEVELOPMENT SPECIALIST Legal Sex Female 4:44 PM CDT Gender Identity Not on file Sexual Orientation Straight 09/01/2024 8: 42 AM TRAINING AND DEVELOPMENT SPECIALIST documented as of this encounter Plan of Treatment Not on file documented as of this encounter Visit Diagnoses Not on filedocumented in this encounter Care Teams Baker Relationship Specialty Start Date End Date Starr Jacinto MD [address] [place] [address] PCP - General INTERNAL MEDICINE 12/20/20 documented as of this encounter
--- OUTSIDE RECORDS SUMMARY | 2025-05-31 16:37 | XMS_ITS | Clinical Summary ---
Author Organization [facility] Address [facility] [place] [address] Care Team Providers Care Admissions Director Name Role Phone Starr Jacinto MD Primary Care Provider [phone] Allergies Active Allergy Reactions Criticality Noted Date [...] Type Department Care Team Description 05/20/2025 Telephone [facility] [address] [place] [address] Arlene Woodson MD Request (For nurse to call back ) from Last 3 Months Immunizations Immunization Administration Dates Next Due Flucelvax 6 Months+ (Prefilled Syringe) 09/10/19 18 Pneumococcal (Prevnar 13) 02/01/2015 Pneumovax 23 25 Mcg/0.5Ml Ij Inj 10/13/2018 Zoster (Zostavax) [address]3815 Unt/0.65Ml 11/19/2013 Social History Tobacco Use Types Packs/Day Years Used Date Smoking Tobacco: Former Cigarettes Smokeless Tobacco: Never Tobacco Cessation:Counseling Given: Not Answered Comments:Quit 34 yrs ago Alcohol Use Standard Drinks/Week Comments Yes 0 (1 standard drink = 0.6 oz pur e alcohol) once or twice Comments No Sex and Gender Information Value Date Recorded Sex Assigned at Female 09/07/2024 12:38 PM JAVA WEB SERVICES DEVELOPER Legal Sex Female 4:44 PM CDT Gender Identity Not on file Sexual Orientation Straight 09/01/2024 8: 42 AM JAVA WEB SERVICES DEVELOPER Last Filed Vital Signs Vital Sign Reading Time Taken Comments Blood Pressure 128/67 08/12/2024 9:37 AM JAVA WEB SERVICES DEVELOPER Pulse 66 08/12/2024 9:35 AM JAVA WEB SERVICES DEVELOPER Temperature - - Respiratory Rate 16 08/12/2024 9:35 AM JAVA WEB SERVICES DEVELOPER Oxygen Saturation 100% 08/12/2024 9:35 AM JAVA WEB SERVICES DEVELOPER Inhaled Oxygen Concentration - - Weight 52.1 kg (114 lb 12.8 oz) 08/12/2024 9:35 AM JAVA WEB SERVICES DEVELOPER Height 149.9 cm (4' 11) 08/12/2024 9: 35 AM JAVA WEB SERVICES DEVELOPER Body Mass Index 23.19 08/12/2024 9:35 AM JAVA WEB SERVICES DEVELOPER Plan of Treatment Health Maintenance Due Date [...] 2018 Dexa Scan (General) 2018 PHQ-2 (Physician [place]) 07/28/2024 COVID-19 Vaccine (2 - 2024-2 6 [...] age to complete this topic Insurance MEDICARE [facility] Care Teams Admissions Director Relationship Specialty Start Date End Date Starr Jacinto MD [address] [place] [address] PCP - General INTERNAL MEDICINE 12/20/20
--- OUTSIDE RECORDS SUMMARY | 2025-05-31 16:37 | XMS_ITS | Encounter Summary ---
Author Organization [facility] Address [address] [place] [address] Care Team Providers Care Housing Specialist Name Role Phone Starr Jacinto MD Primary Care Provider [phone] Encounter Details Date Type Department Care Team (Late st Contact Info) Description 01/02/2019 Abstract SFL CONVERSION [address] [place] [address] , Generic Conversion, Social History Tobacco Use Types Packs/Day Years Used Date Smoking Tobacco: Never Assessed Comments Unknown Sex and Gender Information Value Date Recorded Sex Assigned at Female 09/07/2024 12:38 PM MARINE SERVICE STATION ATTENDANT Legal Sex Female 4:44 PM CDT Gender Identity Not on file Sexual Orientation Straight 09/01/2024 8: 42 AM MARINE SERVICE STATION ATTENDANT documented as of this encounter Plan of Treatment Not on file documented as of this encounter Visit Diagnoses Not on filedocumented in this encounter Care Teams Housing Specialist Relationship Specialty Start Date End Date Starr Jacinto MD [address] [place] [address] PCP - General INTERNAL MEDICINE 12/20/20 documented as of this encounter
== END 2025-05-31 16:00 | disposition home or self-care (01) ==
PROVIDERS: Emergency Provider Emergency Medicine; PCP Internal Medicine
DX: S41.111A Laceration without foreign body of right upper arm, initial encounter (principal); M25.511 Pain in right shoulder; M25.552 Pain in left hip; J44.9 Chronic obstructive pulmonary disease, unspecified; Z87.891 Personal history of nicotine dependence; W10.9XXA Fall (on) (from) unspecified stairs and steps, initial encounter
CPT/HCPCS: 70450; 72125; 73030; 73060; 73502; 99284

== ENCOUNTER 2025-06-16 15:03 | Outpatient (CLI) | payer MEDICARE, SELFPAY ==
--- NOTE | ~2025-06-16 | XR_ITS ---
EXAMINATION: XR chest 2V, 06/16/2025 15:00 MAGNETO REPAIRER HISTORY: COUGH COMPARISON: No comparisons available. Technique: 2 views obtained. Findings: Scattered calcified granulomas otherwise the lungs are clear No pneumothorax. Heart is normal size. Mediastinal and hilar contours are within normal limits. Bony thorax no acute abnormality. Impression: No acute cardiopulmonary abnormality. Reviewed, dictated and finalized at location P. ETO REPAIRER Impression: No acute cardiopulmonary abnormality.
== END 2025-06-16 15:04 | disposition home or self-care (01) ==
LOC: CHSIMG 15:06
PROVIDERS: PCP Internal Medicine; Visit Provider Internal Medicine
DX: R05.3 Chronic cough (principal)
CPT/HCPCS: 71046